=== PATIENT | male | born 1950 | race Caucasian/White ===

== ENCOUNTER 2019-07-14 21:58 | Inpatient (IN) | payer BC, MEDICARE, SELFPAY ==
[2019-07-14] VITALS (10 sets, daily range): BP systolic 106–172; BP diastolic 70–124; PULSE 87–102; RESP 12–20; TEMP 36.6; O2SAT 92–94
--- NOTE | 2019-07-14 22:11 | W.ED.GENAD ---
Discharge Plan Disposition Patient Disposition: [facility] INPATIENT Condition: Stable Discharge Details Chief Complaint: GI Bleed Clinical Impression: UGIB (upper gastrointestinal bleed), Calculus of distal right ureter Primary Care Provider: Rubin Penn ED Provider: Dhruv Salgado Jermyn Meds and New Rx's Prescriptions: No Action tamsulosin 0.4 MG capsule 0.4 mg PO DAILY@0830 Qty: 10 RF: 0 ondansetron HCl 4 mg Tablet 4 mg PO Q6H PRNRF: 0 propranolol 20 mg Tablet 20 mg PO DAILY PRN (Reason: Tremor(S)) RF: 0 oxycodone 5 mg Tablet 5 mg PO Q6H PRNRF: 0 Medical Decision Making Patient presenting with hematemesis after vomiting on and off today due to kidney stone pain. He continues to have intermittent right-sided pain despite oxycodone. The last couple episodes of vomiting were hematemesis. He denies having chest pain or shortness of breath. He has never had this previously. He is not a daily drinker, does not use nonsteroidals regularly, is not a smoker, and has no history of ulcers. 2 IVs established. Liter of LR ordered. Laboratory studies including type and screen ordered. NG tube placed with return of blood, not coffee-ground. Likely only about 50 mL's. EKG without acute ST changes. IV Protonix ordered. My suspicion is that this is a Claudia Pritchett tear. Records obtained from [facility]. Hemoglobin there this morning was 15.4. Tonight hemoglobin is 14. Only other changes this is creatinine was 1 this morning and is 1.7 tonight. Case discussed with surgeon, Dr. Dukes. She is available for endoscopy tomorrow. Case discussed with hospitalist, Dr. Short. Patient will be admitted to the ICU overnight. N.p.o. after midnight. He has received morphine here for his right-sided kidney stone pain. He is also given Zofran. He remained stable at this time. Medical Records Medical records reviewed: Yes I reviewed the patient's medical records. Lab Data Lab results reviewed: Yes I reviewed the patient's lab results. ECG Data Attestation: I personally reviewed and interpreted this ECG (s) as follows: Prior ECG tracings: not available for review Interpretation: Normal sinus rhythm at 97. Normal interval and axis. Nonspecific ST changes noted nothing acute. HPI General Mode of arrival: wheelchair. Date/Time Provider Initiated Documentation: 07/14/19 21:59. Limitations to Documentation: no limitations. Information obtained by: patient, family, RN notes reviewed and old records reviewed. HPI Narrative: Patient presents to ED with complaint of vomiting blood. Patient earlier today had noted right-sided abdominal pain. It was waxing and waning in character but got worse by midmorning. He had episode of vomiting. He was seen at [facility] as he was in the [facility]. There he was diagnosed with a 2 mm UVJ stone. Discharged on oxycodone, Flomax, Zofran. Since being home has still had intermittent episodes of vomiting as well as pain. The last couple of episodes of vomiting looked bloody to him. He has never had this previously. He is not a big drinker. He does not use nonsteroidals. No previous history of ulcers. Continues to have the right sided pain from the kidney stone intermittently. No fever. Related Data Home Medications Medication Instructions Recorded Confirmed tamsulosin 0.4 mg PO DAILY@0830 #10 [facility] 10/01/16 07/14/19 ondansetron HCl 4 mg PO Q6H PRN 07/14/19 07/14/19 oxycodone 5 mg PO Q6H PRN 07/14/19 07/14/19 propranolol 20 mg PO DAILY PRN 07/14/19 07/14/19 Previous Rx's Medication Instructions Recorded tamsulosin 0.4 mg PO DAILY@0830 #10 [facility] 10/01/16 Allergies Allergy/AdvReac Type Severity Reaction Status Date / Time No Known Allergies Allergy Unverified 07/14/19 22:18 Review of Systems Narrative: 03/23 Review of Systems completed and is negative except as stated above in HPI (Systems reviewed: Const, Eyes, ENT, Resp, CV, GI, , MSK, Skin, Neuro) [facility] Medical History Kidney stones (Acute) Testicular cancer (Inactive) Tremor (Chronic) Surgical History Hx of abdominal surgery (Chronic) for intussusception S/P orchiectomy (Chronic) Social History (Reviewed 07/14/19 @ 23:45 by Soto Guardado Smoking/Tobacco Use Status: Never Alcohol Intake: current Alcohol Intake frequency: a few times a month Substance use type: does not use Do you feel safe at home: Yes Do you feel safe in your relationship?: Yes Exam Narrative Exam Narrative: Vitals: Afebrile. Blood pressure elevated. No tachycardia. Initial saturation low but poor waveform and likely not reliable. Const: WDWN male in NAD. HEENT: NC/AT. Normal facial exam. Dried blood around his lips. Eyes: Normal conjunctiva and sclera. Neck: Supple. Trachea midline. Lungs: Normal respiratory effort. Lungs are clear. Cor: RRR without murmur/gallop. Good radial pulses. GI: Soft. NT/ND. No guarding or rebound. Neuro: A+O x 3. Normal speech, mentation, gait. Cranial nerves II - XII grossly intact. No gross motor or sensory deficit. Ext: No C/C/E. Skin: Warm and dry without rash. Critical Care Time Critical Care Time Critical Care Time: Yes Total Critical Care Time: 60 Attestation: Upon my evaluation, this patient had a high probability of imminent or life-threatening deterioration, which required my direct attention, intervention, and personal management. I have personally provided minutes of critical care time exclusive of time spent on separately billable procedures. Time includes review of laboratory data, radiology results, discussion with consultants, and monitoring for potential decompensation. Interventions were performed as documented above.
[2019-07-14 22:28] LABS: Abs Immature Grans 0.03 k/cumm (0.0-0.09); Absolute Basophil Count 0.01 k/cumm (0.0-0.2); Absolute Eosinophil Count 0.02 k/cumm (0.0-0.7); Absolute Monocyte Count 1.22 k/cumm (0.11-0.7); Basophils % 0.1; Eosinophils % 0.2; HCT 41.3 % (40.0-50.0); Immature Grans % 0.3 %; Lymphocytes % 9.2; Mean Corp. HGB Concentration 33.9 g/dL (32.0-36.0); Mean Corpuscular Hemoglobin 30.2 pg (27.0-33.0); Mean Corpuscular Volume 89.2 fL (80-95); Mean Platelet Volume 9.6 fL (8.0-11.0); Monocytes % 10.2; Platelet Count 291 x1000/uL (130-400); RBC 4.63 m/cumm (4.50-6.00); RBC Distribution Width 13.3 % (11.8-14.1)
[2019-07-14] MEDS: Pantoprazole 40 MG VIAL 80 MG IVP (22:33)
[2019-07-14] MEDS: Lactated Ringers 1,000 ML 1000 ML IV (22:33)
[2019-07-14] MEDS: Normal Saline Flush 10 ML SYR IVP (22:34)
[2019-07-14 22:41] LABS: ALT 22 U/L (16-63); AST 19 U/L (15-37); Albumin 3.3 g/dL (3.4-5.0); Alkaline Phosphatase 66 U/L (46-116); Anion Gap 11.4 mmol/L (3-11); BUN 27 mg/dL (7-18); Bilirubin, Total 0.4 mg/dL (0.2-1.0); CO2 24.6 mmol/L (21.0-32.0); CREATININE 1.68 mg/dL (0.70-1.30); Calcium 8.3 mg/dL (8.5-10.1); Chloride 101 mmol/L (98-107); Estimated GFR 40.83 (mL/min/1.73m2); Glucose 170 mg/dL (74-106); Potassium 4.3 mmol/L (3.5-5.1); Sodium 137 mmol/L (136-145)
--- NOTE | 2019-07-14 22:42 | DI.RAD_ITS ---
EXAM: XR PORTABLE CHEST AP INDICATION: NGT placement. COMPARISON: No exams were available for comparison TECHNIQUE: 2D digital imaging was performed. FINDINGS: The heart size and pulmonary vasculature are within normal limits. The lungs are clear. No pleural effusion or pneumothorax is identified. The tip of the nasogastric tube terminates in the distal eso phagus and should be advanced. The bones are unremarkable. IMPRESSION: Tip of the nasogastric tube terminates in the distal esophagus and should be advanced.
--- NOTE | 2019-07-14 22:57 | DI.VRAD_ITS ---
PROCEDURE INFORMATION: Exam: XR Chest, 1 View Exam date and time: 07/14/2019 10:44 PM Age: 68 years old Clinical indication: Other: Ngt placement TECHNIQUE: Imaging protocol: XR of the chest Views: 1 view. COMPARISON: No relevant prior studies available. FINDINGS: Tubes, catheters and devices: Enteric tube terminates in the distal esophagus. Lungs: Unremarkable. No consolidation. Pleural space: Unremarkable. No pleural effusion. No pneumothorax. Heart/Mediastinum: Unremarkable. No cardiomegaly. Bones/joints: Unremarkable. IMPRESSION: Enteric tube terminates in the distal esophagus. Recommend advancement. Findings discussed with ALBANIA HAMMOND MD. by Raghavendra Randall MD. of radiology at 07/14/2019 10:57 PM EST Dictated and Authenticated by: Raghavendra Randall MD. Ordering:DELISA Bartlett MD
[2019-07-14] MEDS: Ondansetron 4 MG/2 ML VIAL IVP (23:11)
[2019-07-14] MEDS: MORPHine 10 MG/ML VIAL 5 MG IVP (23:20)
--- NOTE | 2019-07-14 23:24 | NUR.NOTE ---
Nursing Note: MD updated about pt's pain- not proportionate to pt presentation. Medicated x 2 per MD order. Pt and family requesting more. MD aware. Will continue to monitor.
[2019-07-14 23:29] LABS: PTT Activated 23.4 sec (21.0-31.4)
--- NOTE | 2019-07-14 23:45 | HPE_ITS ---
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 He was seen at [facility] ED and started on Flomax with pain control and antiemetics. He continued to have nausea and vomiting at home with vomiting nonbloody blood prior to presenting to this facility's ED. He had no further hematemesis and an NG tube did show clearing but he will be observed overnight with IV hydration and n.p.o. for EGD in the morning with surgical consultation. He is hemodynamically stable but will be observed in ICU on medical care in case he begins to bleed suddenly. Surgery has been contacted about his case. He is a full code and this will be respected. (2) Kidney stones: Start date: 07/14/19 Status: Acute Assessment and plan: The patient has a 2 mm ureteral stone in the UVJ which will most likely pass with time. We will continue IV hydration and symptom control with urology consultation if he does not pass the stone and continues to have symptoms after being evaluated for his upper GI bleed. 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 He had a 2 mm right UVJ stone which was thought to be able to be passed because of its size. He was placed also on Flomax, antiemetic and pain control and was sent home. During the day he had continued vomiting and began to appear to be bloody emesis with his fourth or fifth bout of emesis. He reported to the ED at this facility with prompting from his for further evaluation. The NG tube was palced while in the ED and did have some unclotted blood clearing with suction. It was thought that he may have a Claudia-Pritchett tear but as precaution his NG tube was left in place and he will be observed overnight with surgical consultation for EGD in the morning. We will repeat his hemograms if he has continued bleeding and at least recheck this in the morning. He has been typed and screened in case he needs transfusion. He has no risk for GI bleed not being on NSAIDs and not drinking alcohol. His recurrent emesis was with some retching. Patient has had no fever but continues to have some right renal colic. Review of Systems Narrative: 13 point review of systems otherwise unrevealing or stable. [facility] Medical History Kidney stones (Acute) Testicular cancer (Inactive) Tremor (Chronic) Surgical History Hx of abdominal surgery (Chronic) for intussusception S/P orchiectomy (Chronic) Social History Smoking/Tobacco Use Status: Never Alcohol Intake: current Alcohol Intake frequency: a few times a month Substance use type: does not use Do you feel safe at home: Yes Do you feel safe in your relationship?: Yes Meds Home Medications and Allergies Home Medications Medication Instructions Recorded Confirmed Type tamsulosin 0.4 mg PO DAILY@0830 #10 [facility] 10/01/16 07/14/19 Rx ondansetron HCl 4 mg PO Q6H PRN 07/14/19 07/14/19 History oxycodone 5 mg PO Q6H PRN 07/14/19 07/14/19 History propranolol 20 mg PO DAILY PRN 07/14/19 07/14/19 History Allergies Allergy/AdvReac Type Severity Reaction Status Date / Time No Known Allergies Allergy Unverified 07/14/19 22:18 Exam Narrative Exam Narrative: General: Patient is thin, appears appropriate for age and in no acute distress. He is alert and oriented x3. HEENT: Normocephalic, eyes with pupils equal and reactive to light symmetrically with extraocular movement intact and sclera anicteric. Oropharynx with dry oral mucosa and fair dentition. Neck: Supple without JVD. Back: Normal posture with no CVA tenderness. Heart: Regular rate and rhythm with no murmurs or gallops appreciated. Lungs: Clear to all station percussion. Abdomen: Scaphoid contour, tender to palpation over the right kidney with no palpable masses, no palpable hepatosplenomegaly and no rebound tenderness. Bowel sounds are positive in all quadrants. Genitalia/rectal: Exam deferred. Extremities: Without clubbing cyanosis or edema. All joints have fair range of motion. Peripheral pulses intact with normal capillary refill. Skin: Normal color, warm and dry. No rashes. Neuro: Cranial nerves II through XII grossly intact, no focalizing motor deficits. Psych: Normal mood and thought processes. Remote and recent memory intact. Lymph: No palpable lymphadenopathy. Results Imaging Imaging Studies: Exam: XR Chest, 1 View Exam date and time: 07/14/2019 10:44 PM Age: 68 years old Clinical indication: Other: Ngt placement TECHNIQUE: Imaging protocol: XR of the chest Views: 1 view. COMPARISON: No relevant prior studies available. FINDINGS: Tubes, catheters and devices: Enteric tube terminates in the distal esophagus. Lungs: Unremarkable. No consolidation. Pleural space: Unremarkable. No pleural effusion. No pneumothorax. Heart/Mediastinum: Unremarkable. No cardiomegaly. Bones/joints: Unremarkable. IMPRESSION: Enteric tube terminates in the distal esophagus. Recommend advancement. Findings discussed with ALBANIA HAMMOND MD. by Raghavendra Randall MD. of radiology at 07/14/2019 10:57 PM EST Dictated and Authenticated by: Raghavendra Randall MD. Labs Result diagrams: 07/14/19 22:05 07/14/19 22:05 Labs: Laboratory Results - last 24 hr 07/14/19 07/14/19 07/14/19 22:05 22:05 22:05 WBC 12.00 H RBC 4.63 Hgb 14.0 Hct 41.3 MCV 89.2 MCH 30.2 MCHC 33.9 RDW 13.3 Plt Count 291 MPV 9.6 Immature Gran % 0.3 Neutrophils % 80.0 Lymphocytes % 9.2 Monocytes % 10.2 Eosinophils % 0.2 Basophils % 0.1 Absolute Neutrophils 9.60 H Absolute Lymphocytes 1.10 L Absolute Monocytes 1.22 H Absolute Eosinophils 0.02 Absolute Basophils 0.01 APTT 23.4 Sodium 137 Potassium 4.3 Chloride 101 Carbon Dioxide 24.6 Anion Gap 11.4 H BUN 27 H Creatinine 1.68 H Estimated GFR/1.73 m2 40.83 Glucose 170 H Calcium 8.3 L Total Bilirubin 0.4 AST 19 ALT 22 Alkaline Phosphatase 66 Total Protein 7.0 Albumin 3.3 L Patient ABO/Rh Antibody Screen 07/14/19 22:05 WBC RBC Hgb Hct MCV MCH MCHC RDW Plt Count MPV Immature Gran % Neutrophils % Lymphocytes % Monocytes % Eosinophils % Basophils % Absolute Neutrophils Absolute Lymphocytes Absolute Monocytes Absolute Eosinophils Absolute Basophils APTT Sodium Potassium Chloride Carbon Dioxide Anion Gap BUN Creatinine Estimated GFR/1.73 m2 Glucose Calcium Total Bilirubin AST ALT Alkaline Phosphatase Total Protein Albumin Patient ABO/Rh O Negative Antibody Screen Negative Last Vital Signs Temp 36.6 C 07/14/19 22:12 Pulse 90 07/14/19 22:12 Resp 16 07/14/19 22:12 BP 172/90 H 07/14/19 22:12 Pulse Ox 92 L 07/14/19 22:12
[2019-07-15] VITALS (87 sets, daily range): BP systolic 88–144; BP diastolic 44–94; PULSE 62–168; RESP 11–28; TEMP 36.5–37.2; O2SAT 92–99
[2019-07-15] LABS: Prothrombin Time 9.9 sec (9.3-11.0)
[2019-07-15] MEDS: Normal Saline 1,000 ML 125 ML IV ×4 (02:00→22:20)
--- NOTE | 2019-07-15 02:41 | NUR.NOTE ---
Per Dr. Short, pt ok to have NG clamped. RN will occaisionally connect to suction and check for output. If pt c/o nausea RN will connect to low intermittent suction. Nursing Note:
[2019-07-15] MEDS: Acetaminophen 325 MG TAB PO (02:49)
[2019-07-15 07:11] LABS: HCT 32.3 % (40.0-50.0); HGB 10.6 g/dL (13.5-17.5); Mean Corp. HGB Concentration 32.8 g/dL (32.0-36.0); Mean Corpuscular Hemoglobin 29.7 pg (27.0-33.0); Mean Corpuscular Volume 90.5 fL (80-95); Mean Platelet Volume 9.6 fL (8.0-11.0); Platelet Count 212 x1000/uL (130-400); RBC 3.57 m/cumm (4.50-6.00); RBC Distribution Width 13.3 % (11.8-14.1); White Blood Cell Count 8.32 k/cumm (4.4-10.8)
[2019-07-15 07:29] LABS: ALT 14 U/L (16-63); AST 14 U/L (15-37); Albumin 2.4 g/dL (3.4-5.0); Alkaline Phosphatase 47 U/L (46-116); Anion Gap 9.4 mmol/L (3-11); BUN 34 mg/dL (7-18); Bilirubin, Total 0.3 mg/dL (0.2-1.0); CO2 25.6 mmol/L (21.0-32.0); CREATININE 1.91 mg/dL (0.70-1.30); Calcium 7.5 mg/dL (8.5-10.1); Chloride 104 mmol/L (98-107); Estimated GFR 35.21 (mL/min/1.73m2); Glucose 118 mg/dL (74-106); Potassium 4.4 mmol/L (3.5-5.1); Sodium 139 mmol/L (136-145); Total Protein 5.2 g/dL (6.4-8.2)
--- NOTE | 2019-07-15 07:48 | SCONE_ITS ---
Date of service: 07/15/19 Time of Service: 07:48 Assessment and Plan Assessment and plan (1) UGIB (upper gastrointestinal bleed): Status: Acute Assessment and plan: A// Patient presented to the ER following a single episode of hematemesis.? Claudia Pritchett tears vs. Upper GI bleed/Ulcers Patient's abdominal pain has been well controlled with morphine overnight. No Flatus or BM. Patient denies any history of heartburn or reflux. He has been NPO overnight. Patient was given ice chips this morning for dry mouth. NG tube is in place on intermittent suction. -Discussed Upper endoscopy procedure and the need to be NPO. Discussed possible complications of the procedure to include bleeding, pain, perforation, missed small lesion/polyp/ulcers, sore throat, aspiration and adverse reaction to the m edications or sedation. Questions were answered to patients satisfaction. No guarantees were implied or given. P// EGD with Dr. Dukes History of Present Illness History of Present Illness Chief Complaint: Upper GI bleed Narrative: 68 y/o male presented to the ER at [facility] yesterday 07/14/19 for abdominal pain and was diagnosed with a right sided kidney stone. He then presented to our ER later that evening with complaints of a single episode of hematemesis which had stopped prior to arrival to the ER. In the ER an NG tube was placed and blood was suctioned out. Patient's pain from his kidney stone has been well controlled overnight with morphine. Patient denies any chest pain, palpitations or fluttering of his heart. He denies any symptoms of h eartburn, reflux or indigestion. He describes feeling like last night while taking tylenol, it felt as if the pill was stuck in his throat. Review of Systems Constitutional Constitutional: Denies chills, Denies fever(s), Denies frequent falls, Denies night sweats and Denies weight loss Eyes Eyes: Denies loss of vision ENT Ears, Nose, Mouth, and Throat: Denies abnormal hearing, Denies dysphagia, Denies hearing loss, Denies nasal congestion and Denies neck pain Cardiovascular Cardiovascular: Denies chest pain at rest, Denies chest pain with activity, Denies syncope, Denies dyspnea, Denies dyspnea on exertion and Denies paroxysmal nocturnal dyspnea Respiratory Respiratory: Denies cough, Denies dyspnea and Denies dyspnea on exertion Gastrointestinal Gastrointestinal: Reports abdominal pain, Denies melena, Denies hematochezia, Denies change in bowel habits, Denies constipation, Denies dysphagia and Denies diarrhea Genitourinary Genitourinary: Denies urinary frequency, Denies urinary hesitancy and Denies urinary urgency Musculoskeletal Musculoskeletal: Denies neck pain Integumentary/Breasts Skin/Breast: Denies bleeding lesions, Denies non-healing lesions, Denies rash and Denies unusual bruising Neurologic Neurologic: Denies abnormal hearing, Denies syncope, Denies frequent falls and Denies loss of vision Hematologic/Lymphatic Hematologic/Lymphatic: Denies easy bleeding and Denies easy bruising PFSH Medical History Kidney stones (Acute) Testicular cancer (Inactive) Tremor (Chronic) Surgical History Hx of abdominal surgery (Chronic) for intussusception S/P orchiectomy (Chronic) Social History Smoking/Tobacco Use Status: Never Alcohol Intake: current Alcohol Intake frequency: a few times a month Substance use type: does not use Do you feel safe at home: Yes Do you feel safe in your relationship?: Yes Exam Const General: cooperative, healthy appearing and comfortable Orientation: alert and oriented x3 Resp Effort & Inspection: normal respiratory effort, no audible wheezes and no cough GI Inspection: normal to inspection and non-distended Palpation: soft, no guarding and nontender Other: NG tube in place, no contents in the container. However, dark brown ? blood was in the tubing. Results Last Vital Signs Temp 36.7 C 07/15/19 01:26 Pulse 87 07/15/19 03:54 Resp 12 07/15/19 05:20 BP 110/67 07/15/19 01:26 Pulse Ox 93 L 07/15/19 05:20 Labs Result diagrams: 07/15/19 06:37 07/15/19 06:37 Labs: Laboratory Results - last 24 hr 07/14/19 07/14/19 07/14/19 22:05 22:05 22:05 WBC 12.00 H RBC 4.63 Hgb 14.0 Hct 41.3 MCV 89.2 MCH 30.2 MCHC 33.9 RDW 13.3 Plt Count 291 MPV 9.6 Immature Gran % 0.3 Neutrophils % 80.0 Lymphocytes % 9.2 Monocytes % 10.2 Eosinophils % 0.2 Basophils % 0.1 Absolute Neutrophils 9.60 H Absolute Lymphocytes 1.10 L Absolute Monocytes 1.22 H Absolute Eosinophils 0.02 Absolute Basophils 0.01 PT 9.9 INR 1.0 APTT 23.4 Sodium 137 Potassium 4.3 Chloride 101 Carbon Dioxide 24.6 Anion Gap 11.4 H BUN 27 H Creatinine 1.68 H Estimated GFR/1.73 m2 40.83 Glucose 170 H Calcium 8.3 L Total Bilirubin 0.4 AST 19 ALT 22 Alkaline Phosphatase 66 Total Protein 7.0 Albumin 3.3 L Patient ABO/Rh Antibody Screen 07/14/19 07/15/19 07/15/19 22:05 06:37 06:37 WBC 8.32 D RBC 3.57 L Hgb 10.6 L D Hct 32.3 L D MCV 90.5 MCH 29.7 MCHC 32.8 RDW 13.3 Plt Count 212 MPV 9.6 Immature Gran % Neutrophils % Lymphocytes % Monocytes % Eosinophils % Basophils % Absolute Neutrophils Absolute Lymphocytes Absolute Monocytes Absolute Eosinophils Absolute Basophils PT INR APTT Sodium 139 Potassium 4.4 Chloride 104 Carbon Dioxide 25.6 Anion Gap 9.4 BUN 34 H Creatinine 1.91 H Estimated GFR/1.73 m2 35.21 Glucose 118 H Calcium 7.5 L Total Bilirubin 0.3 AST 14 L ALT 14 L Alkaline Phosphatase 47 Total Protein 5.2 L Albumin 2.4 L Patient ABO/Rh O Negative Antibody Screen Negative
--- NOTE | 2019-07-15 08:20 | ROE_ITS ---
Date of service: 07/15/19 Time of Service: 12:40 Operative Note Operative Note DATE OF PROCEDURE: 07/15/19 PRE-OP DIAGNOSIS: Hematemesis POST-OP DIAGNOSIS: same (Gastric inflammation and esophageal inflammation) PROCEDURE: EGD SURGEON: Roseline Dukes ANESTHESIA: GETA (ASA 2/ Norman Sampson CRNA) ESTIMATED BLOOD LOSS: 0 COMPLICATIONS: None Patient was transported to: PACU Patient's condition: stable Indications: Mr. Aguilar is a pleasant 68 year old male who was seen at [facility] ER for abdominal pain and diagnosed with Kidney stone. He then drove home, ate lunch and vomited once and there was blood. He was seen in the ER here and vitals were stable. He was admitted to the ICU overnight. An NG tube was placed and 50 cc of blood was removed. In the MOrning there was old blood noted in the NG tube. We were consulted for an EGD. Risks, benefits and complications have been reviewed. Complications include but are not limited to bleeding, pain, perforation, sore throat, aspiration, and adverse reaction to the medications. Questions were entertained and answered to their satisfaction and they wished to proceed. No guarantees were given or implied. Findings: about 400 cc of old blood noted in the stomach and duodenum as well as food particles. NO ulcers or masses were noted. The stomach and duodenum were irrigated with 400 cc of NS Procedure Description: After informed consent was obtained the patient was take to the procedure room and placed in a supine position. Monitors were applied and a time out was done. The patients name, date of , procedure type, allergies to medications and metal in their body was reviewed. A bite block was placed and the patient was sedated. Once sedated and comfortable the gastroscope was advanced through the oropharynx which was grossly normal into the esophagus. The proximal and mid- esophagus were normal. Small amounts of old blood were noted. The scope was advanced into the stomach a lot of old blood was noted with clots. There was also food noted within the stomach. The Gastroscope was removed and the patient was placed under general anesthesia and intubated to protect patient from aspirating old blood. The scope was the placed back into the stomach and through the pylorus into the 3rd portion of the duodenum. The duodenum was noted to be normal after irrigating the torrez with Saline. No ulcers or masses were noted. No bright red blood was noted. The scope was retracted back into the stomach and the blood was irrigated from the gastric torrez. NO ulcers were noted and no masses. There was no acute bleeding noted. The scope was retroflexed. The cardia and fundus were noted to be normal after the blood was irrigated away. There was a hiatal hernia noted. The scope was retracted back into the esophagus and the Ge junction was irrigated. No ulcers or tears were identified. No acute bleeding was noted. The Z line was irregular. The GE junction was at 30 cm. The scope was removed and the patient was woken up and taken back to [facility] in stable condition. I did not due any biopsies as all I could find was generalized inflammation of the stomach and esophagus. I did not want to cause bleeding. Follow up: Patient should have a follow up EGD in 1 months. He will be started on Carafate and BID Protonix.
[2019-07-15] MEDS: Pantoprazole 40 MG VIAL IVP (08:26)
[2019-07-15] MEDS: Normal Saline Flush 10 ML SYR IVP (08:27)
--- NOTE | 2019-07-15 08:57 | W.PM.PROGNOT ---
Date of Service Date of service: 07/15/19 Time of Service: 14:13 Assessment and Plan Assessment and plan (1) Hypotension: Status: Acute Assessment and plan: Likely due to side effect of anesthesia - but recurrent bleeding is also a possibility. Since the patient was put on epinephrine and has not yet been challenged with a diet, he is now formally transferred to the ICU. Treat BP with IVF and monitor post epinephrine. Monitor H/H with resumption of diet. (2) UGIB (upper gastrointestinal bleed): Status: Acute Assessment and plan: s/p EGD today - as above. Started on carafate and PO BID PPI. Will trial a diet and monitor for rebleeding, since no clear source of bleeding has been identified. (3) Anemia due to acute blood loss: Status: Acute Assessment and plan: No active bleeding seen on EGD. Recheck H/H now. As above (4) Tracheal hemorrhage: Status: Suspected Assessment and plan: Likely due to mild trauma on intubation. at this time, does not have evidence of ongoing hemorrhage, but the airway should be closely monitored. (5) Kidney stones: Status: Acute Assessment and plan: Still has not passed the stone. Mild R hydronephrosis on US. If still has not passed the stone by tomorrow, obtain urology consult. (6) Estrada esophagus: Status: Acute Assessment and plan: Started on PPI. Will need a repeat EGD for bx in 1 month. (7) Acute kidney injury superimposed on chronic kidney disease: Status: Acute Assessment and plan: In setting of bleeding and likely hydronephrosis. Also, ?urinary retention - check PVRs. Monitor I/Os, daily weights, Cr. (8) DVT prophylaxis: Status: Acute Assessment and plan: chemical dvt ppx is contraindicated in setting of acute bleeding. TEDs/SCD's (9) Discharge planning issues: Status: Acute Assessment and plan: Full code Upgraded to ICU due to hypotension. Total Critical Care Time 40 minutes. Subjective Subjective Interval history since last seen: S/p EGD today. No active bleeding seen, but about 500 cc of old blood seen in stomach. No obvious source of bleeding found, but he did appear to have friable mucosa throughout stomach and also Estrada's esophagus. Because a large volume of old blood was seen in the stomach, the patient did have to be intubated to protect airway from aspiration. On extubation, the patient was noted to have a streak of blood on his ET tube. His BP's were also in 70's-80's post-op - likely due to precedex he received for anesthesia. He did feel dizzy while laying down when I saw him. Denies chest pain, shortness of breath, nausea, abdominal pain at the time of my exam. Hgb 10.6 this am. No BM. PVCs on monitor. The stone has not yet passed. Exam Narrative Exam Narrative: General: Somnolent middle-aged male, looks pale, clearly still under effect of some anesthesia, A&OX3, but falls asleep easily HEENT: EOMI, MMM Heart: RRR with occasional extra beat Lungs: CTAB Abdomen: soft, nontender, nondistended Extremities: no e/c/c BLE's Objective Objective Clinical Data: Abnormal lab results 07/14/19 07/14/19 07/15/19 Range/Units 22:05 22:05 06:37 WBC 12.00 H (4.4-10.8) k/cumm RBC (4.50-6.00) m/cumm Hgb (13.5-17.5) g/dL Hct (40.0-50.0) % Absolute Neutrophils 9.60 H (1.2-6.7) k/cumm Absolute Lymphocytes 1.10 L (1.2-3.4) k/cumm Absolute Monocytes 1.22 H (0.11-0.7) k/cumm Anion Gap 11.4 H (3-11) mmol/L BUN 27 H 34 H (7-18) mg/dL Creatinine 1.68 H 1.91 H (0.70-1.30) mg/dL Glucose 170 H 118 H (74-106) mg/dL Calcium 8.3 L 7.5 L (8.5-10.1) mg/dL AST 14 L (15-37) U/L ALT 14 L (16-63) U/L Total Protein 5.2 L (6.4-8.2) g/dL Albumin 3.3 L 2.4 L (3.4-5.0) g/dL 07/15/19 Range/Units 06:37 WBC (4.4-10.8) k/cumm RBC 3.57 L (4.50-6.00) m/cumm Hgb 10.6 L D (13.5-17.5) g/dL Hct 32.3 L D (40.0-50.0) % Absolute Neutrophils (1.2-6.7) k/cumm Absolute Lymphocytes (1.2-3.4) k/cumm Absolute Monocytes (0.11-0.7) k/cumm Anion Gap (3-11) mmol/L BUN (7-18) mg/dL Creatinine (0.70-1.30) mg/dL Glucose (74-106) mg/dL Calcium (8.5-10.1) mg/dL AST (15-37) U/L ALT (16-63) U/L Total Protein (6.4-8.2) g/dL Albumin (3.4-5.0) g/dL Vital Signs Temperature 36.5 C 07/15/19 08:38 Temperature Source Temporal Artery Scan 07/15/19 01:26 Pulse 87 07/15/19 03:54 Pulse 86 07/15/19 05:20 Respiratory Rate 12 07/15/19 05:20 Respiratory Effort Non-Labored 07/15/19 08:38 Respiratory Depth Normal 07/15/19 08:38 Blood Pressure 110/67 07/15/19 01:26 Blood Pressure Mean 81 07/15/19 01:26 Blood Pressure Position Supine 07/15/19 08:38 Pulse Oximetry 93 L 07/15/19 05:20 Oxygen Delivery Method Room Air 07/15/19 08:38 Oxygen Flow Rate 0 07/15/19 08:38 Pain Level 0 07/15/19 08:38 Intake & Output 07/14/19 07/14/19 07/15/19 11:59 23:59 11:59 Intake Total 1010 / 1010 810.417 / 810.417 Balance 1010 / 1010 810.417 / 810.417 Weight 79.2 kg 75.1 kg Intake: IV 1010 / 1010 810.417 / 810.417 Other: Comment prostate enlargement Emesis Description Bright Red Blood Gastric Occult Blood Right Nare Positive Laboratory Results WBC 8.32 k/cumm (4.4-10.8) D 07/15/19 06:37 RBC 3.57 m/cumm (4.50-6.00) L 07/15/19 06:37 Hgb 10.6 g/dL (13.5-17.5) L D 07/15/19 06:37 Hct 32.3 % (40.0-50.0) L D 07/15/19 06:37 MCV 90.5 fL (80-95) 07/15/19 06:37 MCH 29.7 pg (27.0-33.0) 07/15/19 06:37 MCHC 32.8 g/dL (32.0-36.0) 07/15/19 06:37 RDW 13.3 % (11.8-14.1) 07/15/19 06:37 Plt Count 212 x1000/uL (130-400) 07/15/19 06:37 MPV 9.6 fL (8.0-11.0) 07/15/19 06:37 Immature Gran % 0.3 % 07/14/19 22:05 Neutrophils % 80.0 07/14/19 22:05 Lymphocytes % 9.2 07/14/19 22:05 Monocytes % 10.2 07/14/19 22:05 Eosinophils % 0.2 07/14/19 22:05 Basophils % 0.1 07/14/19 22:05 Absolute Neutrophils 9.60 k/cumm (1.2-6.7) H 07/14/19 22:05 Absolute Lymphocytes 1.10 k/cumm (1.2-3.4) L 07/14/19 22:05 Absolute Monocytes 1.22 k/cumm (0.11-0.7) H 07/14/19 22:05 Absolute Eosinophils 0.02 k/cumm (0.0-0.7) 07/14/19 22:05 Absolute Basophils 0.01 k/cumm (0.0-0.2) 07/14/19 22:05 PT 9.9 sec (9.3-11.0) 07/14/19 22:05 INR 1.0 (0.9-1.1) 07/14/19 22:05 APTT 23.4 sec (21.0-31.4) 07/14/19 22:05 Sodium 139 mmol/L (136-145) 07/15/19 06:37 Potassium 4.4 mmol/L (3.5-5.1) 07/15/19 06:37 Chloride 104 mmol/L (98-107) 07/15/19 06:37 Carbon Dioxide 25.6 mmol/L (21.0-32.0) 07/15/19 06:37 Anion Gap 9.4 mmol/L (3-11) 07/15/19 06:37 BUN 34 mg/dL (7-18) H 07/15/19 06:37 Creatinine 1.91 mg/dL (0.70-1.30) H 07/15/19 06:37 Estimated GFR/1.73 m2 35.21 (mL/min/1.73m2) 07/15/19 06:37 Glucose 118 mg/dL (74-106) H 07/15/19 06:37 Calcium 7.5 mg/dL (8.5-10.1) L 07/15/19 06:37 Total Bilirubin 0.3 mg/dL (0.2-1.0) 07/15/19 06:37 AST 14 U/L (15-37) L 07/15/19 06:37 ALT 14 U/L (16-63) L 07/15/19 06:37 Alkaline Phosphatase 47 U/L (46-116) 07/15/19 06:37 Total Protein 5.2 g/dL (6.4-8.2) L 07/15/19 06:37 Albumin 2.4 g/dL (3.4-5.0) L 07/15/19 06:37 Patient ABO/Rh O Negative 07/14/19 22:05 Antibody Screen Negative 07/14/19 22:05 US renal: 1. Prominence of the right renal collecting system, which may represent mild hydronephrosis. 2. Large postvoid urinary bladder volume. 3. Debris seen within the urinary bladder. Please correlate clinically. CXR: Bilateral basilar atelectasis.
--- NOTE | 2019-07-15 09:59 | INITIAL_ITS ---
- If Service Date Differs Date of service: 07/15/19 Time of Service: 10:00 Care Management Initial Assess REASON FOR HOSPITALIZATION:: Upper gastrointestinal bleed, kidney stone PAST MEDICAL HISTORY/PAST SURGICAL HISTORY:: Tremor, abdominal surgery for Inter Stim suction, orchiectomy, testicular cancer PREVIOUS FUNCTIONAL STATUS/SOCIAL/FAMILY SUPPORTS:: Soto lives with his spouse, he is independent with ADL's and transportation. Soto denies any assistance or needs. CURRENT FUNCTIONAL STATUS:: Soto is alert during assessment he states he is feeling better and is hopeful to be discharged soon. Soto reports he will follow up with surgical provider after discharge. Soto denies any addtional needs. ADVANCE DIRECTIVES:: None on file, CM offered forms and assistance with comp letion Has patient been provided with information about the portal?: Yes Did the patient sign up for the portal?: No (Already enrolled) CODE STATUS:: Full Code INSURANCE COVERAGE / FINANCIAL ISSUES:: Blue Cross Blue Shield, Medicare CURRENT HOME/COMMUNITY SERVICES/EQUIPMENT:: None PRIMARY CARE PHYSICIAN:: Rubin Penn POTENTIAL DISCHARGE NEEDS:: Follow-up appointment with primary care provider, and urology PATIENT/FAMILY EDUCATION NEEDS:: Discharge education, limitations, follow-up plan of care, asked me 3 and self-management ANTICIPATED BARRIERS TO DISCHARGE:: None TRANSPORTATION:: Via private car with family PLAN:: Soto we discharged home when medically ready, anticipate no additional services. He will need to follow-up with surgical, urology if recomended and primary care provider. CM will continue to provide support
--- NOTE | 2019-07-15 10:33 | DI.US_ITS ---
EXAM: US RENAL CLINICAL HISTORY: NEPHROLITHIASIS, ?HYDRONEPHROSIS TECHNIQUE: Ultrasound performed using standard protocol. COMPARISON: No exams were available for comparison FINDINGS: The right kidney measures 10.6 cm long. There is mild prominence of the right renal collecting syste m. No nephrolithiasis is seen sonographically. There is blood flow to the right kidney. The left kidney measures 11.4 cm long. No renal mass, calculus or obstruction is seen. There is blo od flow to the left kidney. Prevoid urinary bladder volume is 338 cc. There is debris settling in dependent portion of the bladd er. No bladder wall thickening is seen. The left ureteral jet is visualized. There is a large post void urinary bladder volume of 152 cc. Prostate gland is enlarged at 69 cc. IMPRESSION: 1. Prominence of the right renal collecting system, which may represent mild hydronephrosis. 2. Large postvoid urinary bladder volume. 3. Debris seen within the urinary bladder. Please correlate clinically.
[2019-07-15] MEDS: Lactated Ringers 1,000 ML 30 ML IV (11:24)
[2019-07-15] MEDS: Normal Saline 500 ML IV (13:43)
--- NOTE | 2019-07-15 13:52 | DI.RAD_ITS ---
EXAM: XR PORTABLE CHEST AP INDICATION: ?TRAUMA ON INTUBATION (NOW EXTUBATED). COMPARISON: XR PORTABLE CHEST AP POST LINE from 07/14/2019 TECHNIQUE: 2D digital imaging was performed. FINDINGS: The heart size and pulmonary vasculature are within normal limits. The nasogastric tube has been rem annelise. Plate atelectasis is seen in the lung bases bilaterally. No focal consolidating infiltrates a re seen. There are no pleural effusions or pneumothoraces. IMPRESSION: Bilateral basilar atelectasis.
--- NOTE | 2019-07-15 14:35 | W.NUTCONSULT ---
Date of service: 07/15/19 Time of Service: 14:35 Nutritional Consult ASSESSMENT: 68 year old male admitted with upper GI bleed. Diet advanced to regular, soft low acid diet at lunch today. BMI wnl for age. Not considered at nutritional risk at this time. Will be available prn. MONITORING AND EVALUATION: po intake, weight, labs Time Spent in Nutritional Counseling and Treatment: 0 time spent face to face
[2019-07-15] MEDS: Tamsulosin 0.4 MG CAPCR PO (14:42)
[2019-07-15 15:10] LABS: HCT 31.5 % (40.0-50.0); HGB 10.3 g/dL (13.5-17.5)
[2019-07-15] MEDS: Sucralfate 1 GM TAB PO ×2 (17:02→23:00)
--- NOTE | 2019-07-15 17:20 | W.PM.PROGNOT ---
Date of Service Date of service: 07/15/19 Time of Service: 16:00 Assessment and Plan Assessment and plan (1) UGIB (upper gastrointestinal bleed): Status: Acute Assessment and plan: A\\ UGIB. No active bleeding identified.. No clear source noted Discussed findings with patient Patient does indorce some Heart Burn type symptoms intermittently. He has had a couple of very stressful times at work recently. Discussed treatment plan and follow up P\\ Continue on soft diet, low acid Protonix 40 mg BID and Carafate 1 gm ACHS Follow up with Dr. Dukes in 2 weeks on 07/28/2019 at 09:30 Patient signed out to Nelly Salvador MD Subjective Subjective Interval history since last seen: Soto is doing well after his procedure. His BP has come up back to baseline. He has no abdominal pain. He has tolerated a soft diet Exam GI Inspection: normal to inspection Palpation: soft and nontender Auscultation: normal bowel sounds Objective Objective Clinical Data: Abnormal lab results 07/14/19 07/14/19 07/15/19 Range/Units 22:05 22:05 06:37 WBC 12.00 H (4.4-10.8) k/cumm RBC (4.50-6.00) m/cumm Hgb (13.5-17.5) g/dL Hct (40.0-50.0) % Absolute Neutrophils 9.60 H (1.2-6.7) k/cumm Absolute Lymphocytes 1.10 L (1.2-3.4) k/cumm Absolute Monocytes 1.22 H (0.11-0.7) k/cumm Anion Gap 11.4 H (3-11) mmol/L BUN 27 H 34 H (7-18) mg/dL Creatinine 1.68 H 1.91 H (0.70-1.30) mg/dL Glucose 170 H 118 H (74-106) mg/dL Calcium 8.3 L 7.5 L (8.5-10.1) mg/dL AST 14 L (15-37) U/L ALT 14 L (16-63) U/L Total Protein 5.2 L (6.4-8.2) g/dL Albumin 3.3 L 2.4 L (3.4-5.0) g/dL 07/15/19 07/15/19 Range/Units 06:37 14:55 WBC (4.4-10.8) k/cumm RBC 3.57 L (4.50-6.00) m/cumm Hgb 10.6 L D 10.3 L (13.5-17.5) g/dL Hct 32.3 L D 31.5 L (40.0-50.0) % Absolute Neutrophils (1.2-6.7) k/cumm Absolute Lymphocytes (1.2-3.4) k/cumm Absolute Monocytes (0.11-0.7) k/cumm Anion Gap (3-11) mmol/L BUN (7-18) mg/dL Creatinine (0.70-1.30) mg/dL Glucose (74-106) mg/dL Calcium (8.5-10.1) mg/dL AST (15-37) U/L ALT (16-63) U/L Total Protein (6.4-8.2) g/dL Albumin (3.4-5.0) g/dL Vital Signs Temperature 97.7 F 07/15/19 14:02 Temperature Source Temporal Artery Scan 07/15/19 01:26 Pulse 78 07/15/19 14:02 Pulse 82 07/15/19 11:15 Respiratory Rate 17 07/15/19 11:15 Respiratory Effort Non-Labored 07/15/19 14:02 Respiratory Depth Normal 07/15/19 14:02 Blood Pressure 90/55 L 07/15/19 14:02 Blood Pressure Mean 66 07/15/19 14:02 Blood Pressure Position Supine 07/15/19 08:38 Pulse Oximetry 95 07/15/19 14:30 Oxygen Delivery Method Nasal Cannula 07/15/19 14:30 Oxygen Flow Rate 2 07/15/19 14:30 Pain Level 0 07/15/19 14:02 Intake & Output 07/14/19 07/15/19 07/15/19 23:59 11:59 23:59 Intake Total 1010 / 1010 810.417 / 2733.334 1922.917 / 2733.334 Output Total 400 / 400 Balance 1010 / 1010 810.417 / 2333.334 1522.917 / 2333.334 Weight 174 lb 9.698 oz 165 lb 9.074 oz Intake: IV 1010 / 1010 810.417 / 6863.334 1922.917 / 2733.334 Output: Urine 400 / 400 Other: Urine Color Light Agnieszka Urine Appearance Clear Urine Odor None Comment NO voids yet since admit NO voids yet since admit Emesis Description Bright Red Blood Gastric Occult Blood Right Nare Positive Voiding Methods Urinal Laboratory Results WBC 8.32 k/cumm (4.4-10.8) D 07/15/19 06:37 RBC 3.57 m/cumm (4.50-6.00) L 07/15/19 06:37 Hgb 10.3 g/dL (13.5-17.5) L 07/15/19 14:55 Hct 31.5 % (40.0-50.0) L 07/15/19 14:55 MCV 90.5 fL (80-95) 07/15/19 06:37 MCH 29.7 pg (27.0-33.0) 07/15/19 06:37 MCHC 32.8 g/dL (32.0-36.0) 07/15/19 06:37 RDW 13.3 % (11.8-14.1) 07/15/19 06:37 Plt Count 212 x1000/uL (130-400) 07/15/19 06:37 MPV 9.6 fL (8.0-11.0) 07/15/19 06:37 Immature Gran % 0.3 % 07/14/19 22:05 Neutrophils % 80.0 07/14/19 22:05 Lymphocytes % 9.2 07/14/19 22:05 Monocytes % 10.2 07/14/19 22:05 Eosinophils % 0.2 07/14/19 22:05 Basophils % 0.1 07/14/19 22:05 Absolute Neutrophils 9.60 k/cumm (1.2-6.7) H 07/14/19 22:05 Absolute Lymphocytes 1.10 k/cumm (1.2-3.4) L 07/14/19 22:05 Absolute Monocytes 1.22 k/cumm (0.11-0.7) H 07/14/19 22:05 Absolute Eosinophils 0.02 k/cumm (0.0-0.7) 07/14/19 22:05 Absolute Basophils 0.01 k/cumm (0.0-0.2) 07/14/19 22:05 PT 9.9 sec (9.3-11.0) 07/14/19 22:05 INR 1.0 (0.9-1.1) 07/14/19 22:05 APTT 23.4 sec (21.0-31.4) 07/14/19 22:05 Sodium 139 mmol/L (136-145) 07/15/19 06:37 Potassium 4.4 mmol/L (3.5-5.1) 07/15/19 06:37 Chloride 104 mmol/L (98-107) 07/15/19 06:37 Carbon Dioxide 25.6 mmol/L (21.0-32.0) 07/15/19 06:37 Anion Gap 9.4 mmol/L (3-11) 07/15/19 06:37 BUN 34 mg/dL (7-18) H 07/15/19 06:37 Creatinine 1.91 mg/dL (0.70-1.30) H 07/15/19 06:37 Estimated GFR/1.73 m2 35.21 (mL/min/1.73m2) 07/15/19 06:37 Glucose 118 mg/dL (74-106) H 07/15/19 06:37 Calcium 7.5 mg/dL (8.5-10.1) L 07/15/19 06:37 Total Bilirubin 0.3 mg/dL (0.2-1.0) 07/15/19 06:37 AST 14 U/L (15-37) L 07/15/19 06:37 ALT 14 U/L (16-63) L 07/15/19 06:37 Alkaline Phosphatase 47 U/L (46-116) 07/15/19 06:37 Total Protein 5.2 g/dL (6.4-8.2) L 07/15/19 06:37 Albumin 2.4 g/dL (3.4-5.0) L 07/15/19 06:37 Patient ABO/Rh O Negative 07/14/19 22:05 Antibody Screen Negative 07/14/19 22:05
[2019-07-16] VITALS (31 sets, daily range): BP systolic 102–146; BP diastolic 44–70; PULSE 53–113; RESP 14–26; TEMP 36.6–37.8; O2SAT 93–98
[2019-07-16] MEDS: Normal Saline Flush 10 ML SYR IVP ×4 (00:27→19:06)
[2019-07-16] MEDS: Normal Saline 1,000 ML 125 ML IV ×2 (05:50→21:28)
[2019-07-16 06:50] LABS: Abs Immature Grans 0.01 k/cumm (0.0-0.09); Absolute Basophil Count 0.01 k/cumm (0.0-0.2); Absolute Eosinophil Count 0.15 k/cumm (0.0-0.7); Absolute Lymphocyte Count 1.12 k/cumm (1.2-3.4); Absolute Monocyte Count 0.53 k/cumm (0.11-0.7); Absolute Neutrophil Count 4.34 k/cumm (1.2-6.7); Basophils % 0.2; Eosinophils % 2.4; Immature Grans % 0.2 %; Lymphocytes % 18.2; Mean Corp. HGB Concentration 33.3 g/dL (32.0-36.0); Mean Corpuscular Hemoglobin 30.2 pg (27.0-33.0); Mean Corpuscular Volume 90.6 fL (80-95); Mean Platelet Volume 9.5 fL (8.0-11.0); Monocytes % 8.6; Neutrophils % 70.4; Platelet Count 189 x1000/uL (130-400); RBC 2.98 m/cumm (4.50-6.00); RBC Distribution Width 13.4 % (11.8-14.1); White Blood Cell Count 6.16 k/cumm (4.4-10.8)
[2019-07-16 07:18] LABS: Anion Gap 6.9 mmol/L (3-11); BUN 29 mg/dL (7-18); CO2 25.1 mmol/L (21.0-32.0); CREATININE 1.24 mg/dL (0.70-1.30); Calcium 7.5 mg/dL (8.5-10.1); Chloride 110 mmol/L (98-107); Estimated GFR 57.97 (mL/min/1.73m2); Glucose 96 mg/dL (74-106); Magnesium 1.7 mg/dL (1.8-2.4); Potassium 4.3 mmol/L (3.5-5.1); Sodium 142 mmol/L (136-145)
[2019-07-16 07:27] LABS: Diff Comment RBC Morph Reviewed
--- NOTE | 2019-07-16 08:25 | W.PM.PROGNOT ---
Date of Service Date of service: 07/16/19 Time of Service: 15:02 Assessment and Plan Assessment and plan (1) Symptomatic anemia: Status: Acute Assessment and plan: with evidence of hypotension initially and now still quite orthostatic. Resume IVF and continue to trend H/H's - may be re-bleeding. Not ready to be discharged from the hospital. If next H/H stable, can be transferred to [facility]. (2) Hypotension: Status: Resolved Assessment and plan: Likely due to side effect of anesthesia, though anemia is contributing. No longer requiring pressors. (3) UGIB (upper gastrointestinal bleed): Status: Acute Assessment and plan: s/p EGD - with diffusely friable mucosa but no active bleeding. A clot of about 500 cc of old blood seen. Continue carafate and PO BID PPI. Continue diet. (4) Anemia due to acute blood loss: Status: Acute Assessment and plan: No active bleeding seen on EGD. Recheck H/H now. As above (5) Tracheal hemorrhage: Status: Ruled-out Assessment and plan: Likely due to mild trauma on intubation. Self-limited/resolved. (6) Kidney stones: Status: Acute Assessment and plan: at this point, asymptomatic. Cr at baseline. (7) Estrada esophagus: Status: Acute Assessment and plan: Continue PPI. Will need a repeat EGD for bx in 1 month. (8) Acute kidney injury superimposed on chronic kidney disease: Status: Resolved Assessment and plan: In setting of bleeding and likely hydronephrosis/nephrolithiasis. Resolved (9) DVT prophylaxis: Status: Acute Assessment and plan: chemical dvt ppx is contraindicated in setting of acute bleeding. TEDs/SCD's (10) Discharge planning issues: Status: Acute Assessment and plan: Full code Transfer out of ICU if H/H stable. Subjective Subjective Interval history since last seen: Quite orthostatic on VS. Reports dizziness. Denies chest pain, shortness of breath, nausea. He did become tachycardic to 120's just sitting - and sitting for a while. No bleeding. No vomiting. Tolerating food. He states he is going home tomorrow no matter what. Exam Narrative Exam Narrative: General: Somnolent middle-aged male, looks more pale than yesterday, A&Ox3, anxious, argumentative HEENT: EOMI, MMM Heart: RRR with occasional extra beat, tachycardic to 120's while seating Lungs: CTAB Abdomen: soft, nontender, nondistended Extremities: no e/c/c BLE's Objective Objective Clinical Data: Abnormal lab results 07/15/19 07/16/19 07/16/19 Range/Units 14:55 06:25 06:25 RBC 2.98 L (4.50-6.00) m/cumm Hgb 10.3 L 9.0 L (13.5-17.5) g/dL Hct 31.5 L 27.0 L (40.0-50.0) % Absolute Lymphocytes 1.12 L (1.2-3.4) k/cumm Chloride 110 H (98-107) mmol/L BUN 29 H (7-18) mg/dL Calcium 7.5 L (8.5-10.1) mg/dL Magnesium 1.7 L (1.8-2.4) mg/dL Vital Signs Temperature 36.8 C 07/16/19 03:30 Temperature Source Temporal Artery Scan 07/16/19 00:43 Pulse 93 H 07/16/19 06:00 Pulse 101 H 07/16/19 06:00 Respiratory Rate 21 07/16/19 06:00 Respiratory Effort Non-Labored 07/16/19 03:30 Respiratory Depth Normal 07/16/19 03:30 Blood Pressure 112/55 L 07/16/19 06:00 Blood Pressure Mean 69 07/16/19 06:00 Blood Pressure Position Supine 07/16/19 00:43 Pulse Oximetry 95 07/15/19 14:30 Oxygen Delivery Method Room Air 07/16/19 03:30 Oxygen Flow Rate 0 07/16/19 03:30 Pain Level 0 07/16/19 03:30 Intake & Output 07/15/19 07/15/19 07/16/19 11:59 23:59 11:59 Intake Total 810.417 / 4633.334 3822.917 / 4633.334 7.5 / 1956.5 Output Total 1650 / 1650 750 / 750 Balance 810.417 / 2983.334 2172.917 / 2983.334 1207.5 / 1207.5 Weight 75.1 kg 77.1 kg Intake: IV 810.417 / 3733.334 2922.917 / 3733.334 1957.5 / 1956.5 Oral 900 / 900 Output: Urine 1650 / 1650 700 / 700 Stool 50 / 50 Other: Urine Color Yellow Pale Yellow Urine Appearance Clear Clear Sediment Urine Odor None Comment NO voids yet since admit NO voids yet since admit few pieces of light colored debris noted in strainer. Stool Occult Blood Positive Stool Size Small Stool Characteristics Soft Gastric Occult Blood Right Nare Positive Voiding Methods Urinal Urinal Laboratory Results WBC 6.16 k/cumm (4.4-10.8) 07/16/19 06:25 RBC 2.98 m/cumm (4.50-6.00) L 07/16/19 06:25 Hgb 9.0 g/dL (13.5-17.5) L 07/16/19 06:25 Hct 27.0 % (40.0-50.0) L 07/16/19 06:25 MCV 90.6 fL (80-95) 07/16/19 06:25 MCH 30.2 pg (27.0-33.0) 07/16/19 06:25 MCHC 33.3 g/dL (32.0-36.0) 07/16/19 06:25 RDW 13.4 % (11.8-14.1) 07/16/19 06:25 Plt Count 189 x1000/uL (130-400) 07/16/19 06:25 MPV 9.5 fL (8.0-11.0) 07/16/19 06:25 Immature Gran % 0.2 % 07/16/19 06:25 Neutrophils % 70.4 07/16/19 06:25 Lymphocytes % 18.2 07/16/19 06:25 Monocytes % 8.6 07/16/19 06:25 Eosinophils % 2.4 07/16/19 06:25 Basophils % 0.2 07/16/19 06:25 Absolute Neutrophils 4.34 k/cumm (1.2-6.7) 07/16/19 06:25 Absolute Lymphocytes 1.12 k/cumm (1.2-3.4) L 07/16/19 06:25 Absolute Monocytes 0.53 k/cumm (0.11-0.7) 07/16/19 06:25 Absolute Eosinophils 0.15 k/cumm (0.0-0.7) 07/16/19 06:25 Absolute Basophils 0.01 k/cumm (0.0-0.2) 07/16/19 06:25 Differential Comment Rbc morph reviewed 07/16/19 06:25 RBC Morphology See below 07/16/19 06:25 PT 9.9 sec (9.3-11.0) 07/14/19 22:05 INR 1.0 (0.9-1.1) 07/14/19 22:05 APTT 23.4 sec (21.0-31.4) 07/14/19 22:05 Sodium 142 mmol/L (136-145) 07/16/19 06:25 Potassium 4.3 mmol/L (3.5-5.1) 07/16/19 06:25 Chloride 110 mmol/L (98-107) H 07/16/19 06:25 Carbon Dioxide 25.1 mmol/L (21.0-32.0) 07/16/19 06:25 Anion Gap 6.9 mmol/L (3-11) 07/16/19 06:25 BUN 29 mg/dL (7-18) H 07/16/19 06:25 Creatinine 1.24 mg/dL (0.70-1.30) D 07/16/19 06:25 Estimated GFR/1.73 m2 57.97 (mL/min/1.73m2) 07/16/19 06:25 Glucose 96 mg/dL (74-106) 07/16/19 06:25 Calcium 7.5 mg/dL (8.5-10.1) L 07/16/19 06:25 Magnesium 1.7 mg/dL (1.8-2.4) L 07/16/19 06:25 Total Bilirubin 0.3 mg/dL (0.2-1.0) 07/15/19 06:37 AST 14 U/L (15-37) L 07/15/19 06:37 ALT 14 U/L (16-63) L 07/15/19 06:37 Alkaline Phosphatase 47 U/L (46-116) 07/15/19 06:37 Total Protein 5.2 g/dL (6.4-8.2) L 07/15/19 06:37 Albumin 2.4 g/dL (3.4-5.0) L 07/15/19 06:37 Patient ABO/Rh O Negative 07/14/19 22:05 Antibody Screen Negative 07/14/19 22:05
[2019-07-16] MEDS: Tamsulosin 0.4 MG CAPCR PO (09:28)
[2019-07-16] MEDS: Sucralfate 1 GM TAB PO ×4 (09:28→21:30)
[2019-07-16] MEDS: MAGNESIUM SULFATE 2 GM/50 ML BAG IVPB (09:57)
[2019-07-16] MEDS: Docusate Sodium 100 MG CAP PO (09:58)
--- NOTE | 2019-07-16 11:15 | W.NUTRFU ---
Date of service: 07/16/19 Time of Service: 11:15 Nutritional Follow up NOTE: Provided education to Soto about low acid, soft foods for when he discharges. Provided contact information if follow up needed. Time Spent in Nutritional Counseling and Treatment: 15 min spent face to face
[2019-07-16 12:22] LABS: HCT 28.3 % (40.0-50.0); HGB 9.4 g/dL (13.5-17.5)
--- NOTE | 2019-07-16 14:01 | CMPROGNOTE_ITS ---
- If Service Date Differs Date of service: 07/16/19 Time of Service: 14:01 Care Management Progress Note S/O: Soto was sitting up in bed when CM met with him. He reported that he was feeling better, and that he is hoping to go home soon. He reported that his will be here soon, and will be driving him home, if he is discharged today. He stated that he is very independent. CM will continue to follow. A: Soto is a 68 year old male admitted to [facility] for UGI Bleed, Kidney Stones P: Anticipate Soto will return home when medically cleared with no additional services. He will follow up with his PCP and specialists, as recommended. His will drive him home when ready via private vehicle. CM will continue to follow.
--- NOTE | 2019-07-16 14:40 | W.PM.PROGNOT ---
Date of Service Date of service: 07/16/19 Time of Service: 12:15 Assessment and Plan Assessment and plan (1) UGIB (upper gastrointestinal bleed): Status: Acute Assessment and plan: He does not have signs of ongoing bleeding HgB did drift down from yesterday (10.6 to 9.0 this am) but repeat at noon was 9.4 Due to large amount of blood found in stomach yesterday, the cautious plan would be continued monitoring until tomorrow He is very motivated to leave, so the alterative is a follow up outpatient HgB tomorrow. Will discuss with hospitalist. Subjective Subjective Interval history since last seen: Denies abdominal pain No hematemesis or dark stools - has not recently had a BM Tolerating PO Exam Narrative Exam Narrative: No acute distress Objective Objective Clinical Data: Abnormal lab results 07/15/19 07/16/19 07/16/19 Range/Units 14:55 06:25 06:25 RBC 2.98 L (4.50-6.00) m/cumm Hgb 10.3 L 9.0 L (13.5-17.5) g/dL Hct 31.5 L 27.0 L (40.0-50.0) % Absolute Lymphocytes 1.12 L (1.2-3.4) k/cumm Chloride 110 H (98-107) mmol/L BUN 29 H (7-18) mg/dL Calcium 7.5 L (8.5-10.1) mg/dL Magnesium 1.7 L (1.8-2.4) mg/dL 07/16/19 Range/Units 12:15 RBC (4.50-6.00) m/cumm Hgb 9.4 L (13.5-17.5) g/dL Hct 28.3 L (40.0-50.0) % Absolute Lymphocytes (1.2-3.4) k/cumm Chloride (98-107) mmol/L BUN (7-18) mg/dL Calcium (8.5-10.1) mg/dL Magnesium (1.8-2.4) mg/dL Vital Signs Temperature 98.2 F 07/16/19 14:10 Temperature Source Temporal Artery Scan 07/16/19 11:59 Pulse 85 07/16/19 14:10 Pulse 88 07/16/19 12:00 Respiratory Rate 23 07/16/19 12:00 Respiratory Effort Non-Labored 07/16/19 11:59 Respiratory Depth Normal 07/16/19 11:59 Blood Pressure 142/65 H 07/16/19 14:10 Blood Pressure Mean 79 07/16/19 12:00 Blood Pressure Position Supine 07/16/19 00:43 Pulse Oximetry 94 L 07/16/19 11:59 Oxygen Delivery Method Room Air 07/16/19 11:59 Oxygen Flow Rate 0 07/16/19 11:59 Pain Level 0 07/16/19 14:10 Intake & Output 07/15/19 07/16/19 07/16/19 23:59 11:59 23:59 Intake Total 3822.917 / 4633.334 2677.5 / 3397.5 720 / 3397.5 Output Total 1650 / 1650 1350 / 1350 Balance 2172.917 / 2983.334 1327.5 / 2047.5 720 / 2047.5 Weight 169 lb 15.622 oz Intake: IV 2922.917 / 3733.334 1957.5 / 1957.5 Oral 900 / 900 720 / 1440 720 / 1440 Output: Urine 1650 / 1650 1300 / 1300 Stool 50 / 50 Other: Urine Color Yellow Pale Yellow Urine Appearance Clear Clear Sediment Urine Odor None Comment NO voids yet since admit IV fluids are D/C per MD order Stool Occult Blood Positive Stool Size Small Stool Characteristics Soft Voiding Methods Urinal Urinal Laboratory Results WBC 6.16 k/cumm (4.4-10.8) 07/16/19 06:25 RBC 2.98 m/cumm (4.50-6.00) L 07/16/19 06:25 Hgb 9.4 g/dL (13.5-17.5) L 07/16/19 12:15 Hct 28.3 % (40.0-50.0) L 07/16/19 12:15 MCV 90.6 fL (80-95) 07/16/19 06:25 MCH 30.2 pg (27.0-33.0) 07/16/19 06:25 MCHC 33.3 g/dL (32.0-36.0) 07/16/19 06:25 RDW 13.4 % (11.8-14.1) 07/16/19 06:25 Plt Count 189 x1000/uL (130-400) 07/16/19 06:25 MPV 9.5 fL (8.0-11.0) 07/16/19 06:25 Immature Gran % 0.2 % 07/16/19 06:25 Neutrophils % 70.4 07/16/19 06:25 Lymphocytes % 18.2 07/16/19 06:25 Monocytes % 8.6 07/16/19 06:25 Eosinophils % 2.4 07/16/19 06:25 Basophils % 0.2 07/16/19 06:25 Absolute Neutrophils 4.34 k/cumm (1.2-6.7) 07/16/19 06:25 Absolute Lymphocytes 1.12 k/cumm (1.2-3.4) L 07/16/19 06:25 Absolute Monocytes 0.53 k/cumm (0.11-0.7) 07/16/19 06:25 Absolute Eosinophils 0.15 k/cumm (0.0-0.7) 07/16/19 06:25 Absolute Basophils 0.01 k/cumm (0.0-0.2) 07/16/19 06:25 Differential Comment Rbc morph reviewed 07/16/19 06:25 RBC Morphology See below 07/16/19 06:25 PT 9.9 sec (9.3-11.0) 07/14/19 22:05 INR 1.0 (0.9-1.1) 07/14/19 22:05 APTT 23.4 sec (21.0-31.4) 07/14/19 22:05 Sodium 142 mmol/L (136-145) 07/16/19 06:25 Potassium 4.3 mmol/L (3.5-5.1) 07/16/19 06:25 Chloride 110 mmol/L (98-107) H 07/16/19 06:25 Carbon Dioxide 25.1 mmol/L (21.0-32.0) 07/16/19 06:25 Anion Gap 6.9 mmol/L (3-11) 07/16/19 06:25 BUN 29 mg/dL (7-18) H 07/16/19 06:25 Creatinine 1.24 mg/dL (0.70-1.30) D 07/16/19 06:25 Estimated GFR/1.73 m2 57.97 (mL/min/1.73m2) 07/16/19 06:25 Glucose 96 mg/dL (74-106) 07/16/19 06:25 Calcium 7.5 mg/dL (8.5-10.1) L 07/16/19 06:25 Magnesium 1.7 mg/dL (1.8-2.4) L 07/16/19 06:25 Total Bilirubin 0.3 mg/dL (0.2-1.0) 07/15/19 06:37 AST 14 U/L (15-37) L 07/15/19 06:37 ALT 14 U/L (16-63) L 07/15/19 06:37 Alkaline Phosphatase 47 U/L (46-116) 07/15/19 06:37 Total Protein 5.2 g/dL (6.4-8.2) L 07/15/19 06:37 Albumin 2.4 g/dL (3.4-5.0) L 07/15/19 06:37 Patient ABO/Rh O Negative 07/14/19 22:05 Antibody Screen Negative 07/14/19 22:05
--- NOTE | 2019-07-16 17:22 | PHARADMIT ---
Admission Pharmacy Clinical Review UGI bleed, kidney stone Code Status Full Code Current Weight 77.1 kg Renally Cleared and Narrow Therapeutic Index Meds CrCl 53ml/min QTc Value / Action Taken QTc 429 BP Control, Fever BP 142/65 supine, 126/44 standing, 107/57 standing Electrolytes reviewed Na 142, K+ 4.3, Mag 1.7 (replaced with 2g IV) DVT Prophylaxis C/I due to GI bleed... TEDS/SCD's Opiate Usage / Scheduled Bowel Regimen Ordered none, yes Plt/SCr for Heparin / Enoxaparin Plt 189, Scr 1.24 INR for Warfarin H/H stable, WBC/Bands H/H 9.4/28.3 (up from this AM, down from admission), WBC 6.16 Antibiotic appropriateness Cultures and Sensitivities Surgical ABX d/c within 24 hr DM control / Insulin Dosing Heart Failure (Check EF%) (GIANCARLO's, B-Block, Diuretics) IV to PO Switch PO protonix changed back to IV... Home Meds Reviewed Home Meds Not Ordered Comments 500 CC old blood found in stomach during scope stone to pass on its own was hypotensive likely due to anesthesia no active bleeding wants to go home tomorrow no matter what Monitor H/H closely
[2019-07-16 18:24] LABS: HCT 29.9 % (40.0-50.0)
[2019-07-16] MEDS: Pantoprazole 40 MG VIAL IVP (19:06)
[2019-07-17] VITALS (23 sets, daily range): BP systolic 93–132; BP diastolic 41–87; PULSE 60–102; RESP 15–28; TEMP 36.7–36.8; O2SAT 92–96
[2019-07-17 00:22] LABS: HCT 26.9 % (40.0-50.0)
[2019-07-17 06:47] LABS: Abs Immature Grans 0.01 k/cumm (0.0-0.09); Absolute Basophil Count 0.02 k/cumm (0.0-0.2); Absolute Eosinophil Count 0.17 k/cumm (0.0-0.7); Absolute Lymphocyte Count 1.39 k/cumm (1.2-3.4); Absolute Monocyte Count 0.71 k/cumm (0.11-0.7); Absolute Neutrophil Count 4.21 k/cumm (1.2-6.7); Basophils % 0.3; Eosinophils % 2.6; HCT 27.8 % (40.0-50.0); HGB 9.3 g/dL (13.5-17.5); Immature Grans % 0.2 %; Lymphocytes % 21.4; Mean Corp. HGB Concentration 33.5 g/dL (32.0-36.0); Mean Corpuscular Hemoglobin 30.1 pg (27.0-33.0); Mean Platelet Volume 9.6 fL (8.0-11.0); Monocytes % 10.9; Neutrophils % 64.6; Platelet Count 206 x1000/uL (130-400); RBC 3.09 m/cumm (4.50-6.00); RBC Distribution Width 13.3 % (11.8-14.1); White Blood Cell Count 6.51 k/cumm (4.4-10.8)
[2019-07-17] MEDS: Normal Saline Flush 10 ML SYR IVP (06:58)
[2019-07-17] MEDS: Pantoprazole 40 MG VIAL IVP (06:58)
[2019-07-17 07:00] LABS: Anion Gap 9.8 mmol/L (3-11); BUN 16 mg/dL (7-18); CO2 25.2 mmol/L (21.0-32.0); CREATININE 1.16 mg/dL (0.70-1.30); Calcium 7.8 mg/dL (8.5-10.1); Chloride 107 mmol/L (98-107); Glucose 103 mg/dL (74-106); Magnesium 1.9 mg/dL (1.8-2.4); Potassium 3.9 mmol/L (3.5-5.1); Sodium 142 mmol/L (136-145)
[2019-07-17] MEDS: Sucralfate 1 GM TAB PO ×2 (08:01→12:11)
--- NOTE | 2019-07-17 12:43 | DSE_ITS ---
Date of service: 07/17/19 Time of Service: 12:44 DS: Diagnosis Discharge Diagnosis (1) UGIB (upper gastrointestinal bleed): Status: Acute (2) Anemia due to acute blood loss: Status: Acute (3) Gastritis: Status: Acute (4) Esophagitis: Status: Acute (5) Symptomatic anemia: Status: Acute (6) Hypotension: Status: Resolved (7) Tracheal hemorrhage: Status: Ruled-out (8) Kidney stones: Status: Resolved (9) Estrada esophagus: Status: Acute (10) Acute kidney injury superimposed on chronic kidney disease: Status: Resolved (11) Orthostasis: Status: Resolved Discharge Plan Disposition Patient Disposition: HOME Condition: Stable Discharge Details Chief Complaint: GI Bleed Clinical Impression: UGIB (upper gastrointestinal bleed), Calculus of distal right ureter Reason For Visit: UGI BLEED, RIGHT URETERL LITHIASIS WITH RENAL COLI Admit Date/Time: 07/14/19 23:47 Admit Provider: Soto Short Attending Provider: Fang Taylor Primary Care Provider: Rubin Penn ED Provider: Dhruv Salgado Hospital Course Hospital Course: Mr Aguilar is a 68 year old male with PMHx of testicular ca s/p orchiectomy, nephrolithiasis, chronic tremor, who was admitted to [facility] hospitalist service on 07/14/2019 for upper GI bleeding. Earlier the same day the patient was seen at [facility] for treatment of nephrolithiasis (in transit), and the patient did experience nausea/vomiting, so there was a concern for a Claudia-Pritchett tear. The patient was made NPO, treated with IV protonix, and underwent an EGD on 07/15/2019, which revealed a large clot of coagulated blood (about 500 cc), no active bleeding or a source where the bleeding could have happened from, but the patient did have gastric and esophageal inflammation. The patient did have to be intubated to have his airway protected while the gastric clot was being evacuated. On removal of his ET tube, blood streaking was noted, but CXR and further hospital course ruled out pulmonary hemorrhage. Post anesthesia, the patient was hypotensive, but the BP normalized after a bolus of IVF and a short infusion of phenylephrine, for which he did have to be upgraded to ICU level. Once stable, the patient was permitted a soft bland low acid, no spice diet and placed on PO PPI. However, his hemoglobin did drift down on hospital day 2 - now, we believe, due to dilutional anemia. The patient was quiet orthostatic as well. He was kept another night to make sure that hemoglobins remained stable and that he got further IV hydration. His flomax was discontinued as he had passed his kidney stone. With this, his orthostasis had resolved. He is medically stable for discharge home today on protonix 40 mg PO BID, carafate AC/HS, instructions to follow soft, bland, low acid, no fat diet, and follow up with Dr Dukes as scheduled on 07/28/2019. He will likely need another EGD in the near future. The patient verbalized that he will make his own appointment with a new PCP in [place]. Care for patient and completion of his discharge summary on day of discharge took 45 minutes. Home Meds and New Rx's Prescriptions: New acetaminophen [Tylenol] 325 mg Tablet 650 mg PO Q4H PRN PRNQty: 30 RF: 0 sucralfate 1 gram Tablet 1 g PO AC & HS Qty: 120 RF: 0 docusate sodium [Colace] 100 mg Capsule 100 mg PO TID PRN PRNQty: 30 RF: 0 Protonix [address] griggs susp in packet 40 mg PO BID Qty: 60 RF: 0 Continued ondansetron HCl 4 mg Tablet 4 mg PO Q6H PRNRF: 0 propranolol 20 mg Tablet 20 mg PO DAILY PRN (Reason: Tremor(S)) RF: 0 Discontinued tamsulosin 0.4 MG capsule 0.4 mg PO DAILY@0830 Qty: 10 RF: 0 oxycodone 5 mg Tablet 5 mg PO Q6H PRNRF: 0 Discharge Instructions Instructions: Sucralfate (By mouth), Pantoprazole (By mouth), Gastritis (DC), Diet for Stomach Ulcers and Gastritis (GEN), Estrada Esophagus (DC), Esophagitis (DC) Additional Instructions: Follow up scheduled with Dr. Dukes 07/28/19 at 9:30AM-contact [phone] Return to the hospital with any dizziness, palpitations/chest pain, weakness, chest pain, shortness of breath, vomiting or passing blood. Arrange follow up with your new PCP. Referrals: Roseline Dukes MD [ [facility] STAFF PHYSICIAN] - 07/28/19 9:30 am Activity:: Activity as Tolerated Equipment/Supplies:: No Equipment Needed Diet:: Soft bland, low acid, no spice diet Discharge Orders Discharge Orders: Discharge Order (Routine); Ordered 07/17/19 Ordered By: Fang Taylor Other Ambulatory Orders: Complete Blood Count No Diff (Routine) Timeframe: [id number] Location: Determined by Patient Ordered By: Fang Taylor DS: Summary Status at Discharge Functional status at discharge: independent ambulation Overall status at discharge: patient is progressing back to baseline Mental Status: mental status grossly normal Speech and Movement: speech and movement normal Mood: congruent mood Affect: normal affect Exam Narrative Exam Narrative: General: middle-aged male, looks more pale than yesterday, A&Ox3, anxious, cooperative HEENT: EOMI, MMM Heart: RRR with occasional extra beat Lungs: CTAB Abdomen: soft, nontender, nondistended Extremities: no e/c/c BLE's Psych Mental Status: mental status grossly normal Speech and Movement: speech and movement normal Mood: congruent mood Affect: normal affect DS: Data Vitals/I&O Vitals and I&O: Vital Signs Temperature 36.7 C 07/17/19 12:34 Temperature Source Temporal Artery Scan 07/17/19 12:34 Pulse 80 07/17/19 12:14 Pulse 80 07/17/19 12:14 Respiratory Rate 19 07/17/19 12:14 Respiratory Effort Non-Labored 07/17/19 12:34 Respiratory Depth Normal 07/17/19 12:34 Respiratory Pattern Normal 07/17/19 12:34 Blood Pressure 124/68 07/17/19 12:14 Blood Pressure Mean 82 07/17/19 12:14 Blood Pressure Position Supine 07/17/19 12:34 Pulse Oximetry 96 07/17/19 12:34 Oxygen Delivery Method Room Air 07/17/19 12:34 Oxygen Flow Rate 0 07/17/19 12:34 Pain Level 0 07/17/19 12:34 Intake & Output 07/16/19 07/17/19 07/17/19 23:59 11:59 23:59 Intake Total 1440 / 4700.833 320 / 540 220 / 540 Output Total 1950 / 3300 1175 / 1175 Balance -510 / 1400.833 -855 / -635 220 / -635 Intake: IV 0 / 0 Oral 1440 / 2160 320 / 540 220 / 540 Output: Urine 1950 / 3250 1175 / 1175 Other: Urine Color Yellow Yellow Urine Appearance Clear Clear Urine Odor Normal Normal Comment using urinal Patient stands to void in urinal. Patient stands to void in urinal. Voiding Methods Urinal Urinal Data Completed and Pending Completed studies during hospitalization [Text1]: CXR 07/14/2019: Tip of the nasogastric tube terminates in the distal esophagus and should be advanced. US renal 07/15/2019: 1. Prominence of the right renal collecting system, which may represent mild hydronephrosis. 2. Large postvoid urinary bladder volume. 3. Debris seen within the urinary bladder. Please correlate clinically. CXR 07/15/2019: Bilateral basilar atelectasis. Labs on day of discharge: Labs from last 24 hours 07/17/19 07/17/19 07/17/19 06:10 06:10 00:15 WBC 6.51 RBC 3.09 L Hgb 9.3 L 9.0 L Hct 27.8 L 26.9 L MCV 90.0 MCH 30.1 MCHC 33.5 RDW 13.3 Plt Count 206 MPV 9.6 Immature Gran % 0.2 Neutrophils % 64.6 Lymphocytes % 21.4 Monocytes % 10.9 Eosinophils % 2.6 Basophils % 0.3 Absolute Neutrophils 4.21 Absolute Lymphocytes 1.39 Absolute Monocytes 0.71 H Absolute Eosinophils 0.17 Absolute Basophils 0.02 Sodium 142 Potassium 3.9 Chloride 107 Carbon Dioxide 25.2 Anion Gap 9.8 BUN 16 D Creatinine 1.16 Estimated GFR/1.73 m2 >= 60.00 Glucose 103 Calcium 7.8 L Magnesium 1.9 07/16/19 18:05 WBC RBC Hgb 10.0 L Hct 29.9 L MCV MCH MCHC RDW Plt Count MPV Immature Gran % Neutrophils % Lymphocytes % Monocytes % Eosinophils % Basophils % Absolute Neutrophils Absolute Lymphocytes Absolute Monocytes Absolute Eosinophils Absolute Basophils Sodium Potassium Chloride Carbon Dioxide Anion Gap BUN Creatinine Estimated GFR/1.73 m2 Glucose Calcium Magnesium [facility] Medical History (Updated 07/17/19 @ 12:57 by Fang Taylor MD) CKD (chronic kidney disease) (Acute) Kidney stones (Resolved) Testicular cancer (Inactive) Tremor (Chronic) Surgical History Hx of abdominal surgery (Chronic) for intussusception S/P orchiectomy (Chronic) Social History Smoking/Tobacco Use Status: Never Alcohol Intake: current Alcohol Intake frequency: a few times a month Substance use type: does not use Do you feel safe at home: Yes Do you feel safe in your relationship?: Yes
--- NOTE | 2019-07-17 13:13 | W.NUTCONSULT ---
Date of service: 07/17/19 Time of Service: 13:13 Nutritional Consult ASSESSMENT: Appreciate RN request for list of low acid producing foods as a way to prevent GI bleeding in the future. Hgb now 9's. Mr. Aguilar states his problem started with nausea/vomiting while experiencing kidney stones. Here he started eating a regular diet noted as low acid. States he eats on the run, frequently at [employer] type venues and he always has a coke. He admits to eating a lot of 'junk' food. Did not do a full diet recall. He already has a list of acid / alkaline producing foods. I presented him with another that had some contradictory information, so we left it he will use the list he was originally given. He questions his list because many of the foods he received here during his stay are on the list. NUTRITIONAL DIAGNOSIS: Iron deficiency secondary to GI bleed not related to nutritional intake; low nutient intake secondary to high sugar high processed, nutrient poor food choices. INTERVENTION: Reviewed the list with him. He is dismayed there is very few grains of which he does not eat, and no fish or meat on his list of acceptable foods. He agrees to cut out sugar sweetened beverages and processed meats; will cut back on meat portions, grains and increase acceptable vegetables. 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 MONITORING AND EVALUATION: Discharged imminently; states he has support outside he will access to work on his food choices He has our contact information for follow up as he desires. Time Spent in Nutritional Counseling and Treatment: 15 minutes face to face
--- NOTE | 2019-07-17 13:57 | PDOC.CMDIS ---
- If Service Date Differs Date of service: 07/17/19 Time of Service: 13:58 LACE Index Scoring Tool - Questions: Length of Stay (in days): 4 - 6 Acuity (Admit via E.D.?): Yes Comorbidities: Any Tumor E.D. Visits: 2 - Answers: Total Score: 11 Risk of Readmission: High Risk Care Management Discharge Reason for Hospitalization: Upper gastrointestinal bleed, kidney stone Discharge Plan: Soto is being discharged home today he does not need any additional services. Soto will seek out a new primary care provider, he does not want to return to [facility] as he wants a male provider. CM provided Soto with a provider in [place] Dr.Peter Carrintgon and the contact information. Soto prefers to follow up with provider on his own. Soto does have a follow up visit with on 07/28/2019. Soto will transport home with his spouse at time of discharge. Patient/Family Education Needs: Discharge education, limitations and follow up plan of care including ask me three and self management.
== END 2019-07-17 15:10 | disposition home or self-care (01) | DRG 378 ==
LOC: ER 07-15 00:34 → ICU 07-15 01:25
PROVIDERS: Surgery; Admitting Provider Family Medicine; Emergency Provider Emergency Medicine; PCP Internal Medicine; Visit Provider Internal Medicine
PROC: 0DJ68ZZ Inspection of Stomach, Via Natural or Artificial Opening Endoscopic (ICD-10-PCS; CPT 43235; principal; 2019-07-15 11:15)
DX: K92.2 Gastrointestinal hemorrhage, unspecified (principal); N20.1 Calculus of ureter; D62 Acute posthemorrhagic anemia; N17.9 Acute kidney failure, unspecified; J98.11 Atelectasis; K92.0 Hematemesis; K29.70 Gastritis, unspecified, without bleeding; K44.9 Diaphragmatic hernia without obstruction or gangrene; K20.9 Esophagitis, unspecified; I95.81 Postprocedural hypotension; I95.1 Orthostatic hypotension; N18.9 Chronic kidney disease, unspecified; K22.70 Barrett's esophagus without dysplasia
CPT/HCPCS: 43235; 31500; 36415; 71045; 76770; 80048; 80053; 85027; 86850; 86900; 86901; 93005; 96361; 96374; 96375; 99222; 99231; 99232; 99239; 99253; 99291; NC; 83735; 85014; 85018; 85025; 85610; 85730; 93010; J2270; J2405

== ENCOUNTER 2019-07-29 15:24 | Outpatient (REF) | payer BC, MEDICARE, SELFPAY ==
[2019-08-06 15:02] LABS: Helicobacter pylori Ag, Feces Negative (Negative)
== END 2019-07-29 15:44 ==
LOC: LBN 15:24
PROVIDERS: PCP Internal Medicine; Visit Provider Internal Medicine
DX: K92.2 Gastrointestinal hemorrhage, unspecified (principal)
CPT/HCPCS: 87338

== ENCOUNTER 2019-08-21 16:03 | Outpatient (REF) | payer BC, MEDICARE, SELFPAY ==
[2019-08-21 20:32] LABS: Absolute Basophil Count 0.01 k/cumm (0.0-0.2); Absolute Eosinophil Count 0.15 k/cumm (0.0-0.7); Absolute Monocyte Count 0.36 k/cumm (0.11-0.7); Absolute Neutrophil Count 3.92 k/cumm (1.2-6.7); Basophils % 0.2; Eosinophils % 2.6; HCT 39.1 % (40.0-50.0); HGB 12.7 g/dL (13.5-17.5); Mean Corp. HGB Concentration 32.5 g/dL (32.0-36.0); Mean Corpuscular Hemoglobin 29.1 pg (27.0-33.0); Mean Corpuscular Volume 89.5 fL (80-95); Mean Platelet Volume 9.9 fL (8.0-11.0); Monocytes % 6.2; Platelet Count 303 x1000/uL (130-400); RBC 4.37 m/cumm (4.50-6.00); RBC Distribution Width 13.3 % (11.8-14.1); White Blood Cell Count 5.84 k/cumm (4.4-10.8)
[2019-08-21 21:14] LABS: Ferritin 40 ng/mL (26-388)
== END 2019-08-21 16:23 ==
LOC: NCHCN 16:03
PROVIDERS: PCP Internal Medicine; Visit Provider Internal Medicine
DX: K92.2 Gastrointestinal hemorrhage, unspecified (principal); K22.70 Barrett's esophagus without dysplasia
CPT/HCPCS: 82728; 85025

== ENCOUNTER 2020-04-25 14:20 | Outpatient (REF) | payer BC, SELFPAY ==
[2020-04-28 16:19] LABS: SARS-CoV-2 RNA Undetected (Undetected); SARS-CoV-2 Specimen Source Nasal
== END 2020-04-25 14:40 ==
LOC: NCHCN 14:20
PROVIDERS: PCP Internal Medicine; Visit Provider Nurse Practitioner Family
DX: Z20.828 Contact with and (suspected) exposure to other viral communicable diseases (principal)
CPT/HCPCS: U0003

== ENCOUNTER 2020-05-17 10:26 | Outpatient (REF) | payer BC, SELFPAY ==
[2020-05-17 21:27] LABS: HCT 42.6 % (40.0-50.0); MCH 29.5 pg (27.0-33.0); MCHC 32.9 % (32.0-36.0); MCV 89.9 fL (80-95); MPV 9.6 fL (8.0-11.0); Platelet Count 421 10^3/uL (130-400); RBC 4.74 10^6/uL (4.36-5.78); RDW 12.3 % (11.8-14.1); RDW-SD 40.6 fL
[2020-05-17 21:55] LABS: Alkaline Phosphatase 76 U/L (46-116); Ferritin 163 ng/mL (26-388)
[2020-05-17 22:11] LABS: ESR 84 mm/hr (1-20)
== END 2020-05-17 10:46 ==
LOC: NCHCN 10:26
PROVIDERS: PCP Internal Medicine; Visit Provider Nurse Practitioner Family
DX: M75.01 Adhesive capsulitis of right shoulder (principal); Z85.47 Personal history of malignant neoplasm of testis; G25.0 Essential tremor; M25.511 Pain in right shoulder
CPT/HCPCS: 85027; 85652; 82728; 84075

== ENCOUNTER 2020-05-19 21:26 | Outpatient (REF) | payer BC, SELFPAY ==
[2020-05-19 21:48] LABS: C-Reactive Protein 8.81 mg/dL (0.0-0.3)
[2020-05-23 11:27] LABS: Lyme Ab w Rflx to Lyme Confirm Negative (Negative)
== END 2020-05-19 21:46 ==
LOC: NCHCN 21:26
PROVIDERS: PCP Internal Medicine; Visit Provider Internal Medicine
DX: M89.50 Osteolysis, unspecified site (principal)
CPT/HCPCS: 86140; 86618

== ENCOUNTER 2020-05-30 20:44 | Outpatient (REF) | payer BC, MEDICARE, SELFPAY ==
[2020-05-30 21:34] LABS: ESR 22 mm/hr (1-20)
[2020-05-31 16:30] LABS: CRP, High Sensitivity 8.47 mg/L (See Note)
== END 2020-05-30 21:04 ==
LOC: NCHCN 20:44
PROVIDERS: PCP Internal Medicine; Visit Provider Internal Medicine
DX: M06.4 Inflammatory polyarthropathy (principal)
CPT/HCPCS: 85652; 86141

== ENCOUNTER 2020-08-25 08:07 | Outpatient (REF) | payer BC, MEDICARE, SELFPAY ==
[2020-08-25 14:17] LABS: ALT 26 U/L (16-63); AST 15 U/L (15-37); Albumin 3.5 g/dL (3.4-5.0); Alkaline Phosphatase 68 U/L (46-116); Anion Gap 7.8 mmol/L (3-11); BUN 16 mg/dL (7-18); Bilirubin, Total 0.4 mg/dL (0.2-1.0); CO2 29.2 mmol/L (21.0-32.0); CREATININE 1.1 mg/dL (0.70-1.30); Calculated LDL 236 mg/dL (<100); Chloride 106 mmol/L (98-107); Cholesterol 326 mg/dL (<200); Glucose 93 mg/dL (74-106); HDL Cholesterol 61 mg/dL (40-60); Potassium 4.2 mmol/L (3.5-5.1); Sodium 143 mmol/L (136-145); Total Protein 6.8 g/dL (6.4-8.2); Triglyceride 147 mg/dL (<150)
== END 2020-08-25 08:08 | disposition home or self-care (01) ==
LOC: NCHCN 08:07
PROVIDERS: PCP Internal Medicine; Visit Provider Internal Medicine
DX: Z00.00 Encounter for general adult medical examination without abnormal findings (principal); Z13.220 Encounter for screening for lipoid disorders; Z13.228 Encounter for screening for other metabolic disorders; Z12.5 Encounter for screening for malignant neoplasm of prostate
CPT/HCPCS: 80053; 80061; 84153

== ENCOUNTER 2020-09-27 09:17 | Outpatient (REF) | payer BC, MEDICARE, SELFPAY ==
[2020-09-27 13:09] LABS: ESR 16 mm//hr (0-20)
[2020-09-27 13:14] LABS: ALT 20 U/L (16-63); AST 17 U/L (15-37); Albumin 3.4 g/dL (3.4-5.0); Alkaline Phosphatase 63 U/L (46-116); Anion Gap 5.2 mmol/L (3-11); BUN 17 mg/dL (7-18); Bilirubin, Total 0.4 mg/dL (0.2-1.0); CO2 29.8 mmol/L (21.0-32.0); CREATININE 1.1 mg/dL (0.70-1.30); Calcium 8.7 mg/dL (8.5-10.1); Chloride 109 mmol/L (98-107); Glucose 92 mg/dL (74-106); Potassium 4.1 mmol/L (3.5-5.1); Sodium 144 mmol/L (136-145); Total Protein 6.6 g/dL (6.4-8.2)
[2020-09-27 16:28] LABS: Rheumatoid Factor <8.6 IU/mL (<12.0)
[2020-09-28 09:25] LABS: Cyclic Citrullinated Peptide <2.5 U/mL (<5.0)
[2020-09-28 14:59] LABS: ANA Interpretation Negative (Negative)
== END 2020-09-27 09:18 | disposition home or self-care (01) ==
LOC: NCHCN 09:17
PROVIDERS: Internal Medicine Rheumatology; PCP Internal Medicine; Visit Provider Internal Medicine
DX: M35.3 Polymyalgia rheumatica (principal); M25.59 Pain in other specified joint
CPT/HCPCS: 80053; 85652; 86200; 86038; 86431

== ENCOUNTER 2020-10-03 13:49 | Outpatient (REF) | payer BC, MEDICARE, SELFPAY ==
[2020-10-03 14:57] LABS: Bilirubin Negative (Negative); Blood Negative (Negative); Clarity Cloudy (Clear); Glucose Negative (Negative); Ketones Negative (Negative); Leukocyte Esterase Negative (Negative); Nitrite Negative (Negative); Specific Gravity >= 1.030 (1.005-1.025); Urobilinogen 0.2 EU/dL (Up TO 0.2); pH 5.5 (5-8)
== END 2020-10-03 13:50 | disposition home or self-care (01) ==
LOC: NCHCN 13:49
PROVIDERS: PCP Internal Medicine; Visit Provider Internal Medicine
DX: R82.998 Other abnormal findings in urine (principal); R97.20 Elevated prostate specific antigen [PSA]
CPT/HCPCS: 81003; 87086

== ENCOUNTER 2021-01-03 13:42 | Outpatient (REF) | payer BC, SELFPAY ==
[2021-01-03 14:17] LABS: Abs Immature Grans 0.02 10^3/uL (0.0-0.06); Absolute Basophil Count 0.02 10^3/uL (0.0-0.2); Absolute Eosinophil Count 0.13 10^3/uL (0.0-0.7); Absolute Lymphocyte Count 0.88 10^3/uL (1.2-3.4); Absolute Monocyte Count 0.55 10^3/uL (0.1-0.8); Absolute Neutrophil Count 4.92 10^3/uL (1.2-6.7); Basophils % 0.3; HCT 44.6 % (40.0-50.0); HGB 14.5 g/dL (13.5-17.5); Immature Grans % 0.3; Lymphocytes % 13.5; MCH 29.4 pg (27.0-33.0); MCHC 32.5 % (32.0-36.0); MCV 90.3 fL (80-95); MPV 9.7 fL (8.0-11.0); Monocytes % 8.4; Neutrophils % 75.5; Nucleated RBC 0 %; Platelet Count 312 10^3/uL (130-400); RBC 4.94 10^6/uL (4.36-5.78); RDW 12.5 % (11.8-14.1); RDW-SD 41.3 fL; WBC 6.52 10^3/uL (4.4-10.8)
[2021-01-03 14:25] LABS: ALT 17 U/L (16-63); AST 15 U/L (15-37); Albumin 3.6 g/dL (3.4-5.0); Alkaline Phosphatase 71 U/L (46-116); Anion Gap 9.6 mmol/L (3-11); BUN 21 mg/dL (7-18); Bilirubin, Total 0.4 mg/dL (0.2-1.0); CO2 26.4 mmol/L (21.0-32.0); CREATININE 1.1 mg/dL (0.70-1.30); Calcium 8.8 mg/dL (8.5-10.1); Chloride 105 mmol/L (98-107); Glucose 96 mg/dL (74-106); Potassium 4.4 mmol/L (3.5-5.1); Sodium 141 mmol/L (136-145); Total Protein 6.9 g/dL (6.4-8.2)
[2021-01-03 22:36] LABS: PSA, Diagnostic 12.2 ng/mL (0.0-6.5)
[2021-01-06 14:32] LABS: Testosterone, Total 20 ng/dL (240-950)
== END 2021-01-03 13:43 | disposition home or self-care (01) ==
LOC: LBN 13:42
PROVIDERS: PCP Internal Medicine; Visit Provider Internal Medicine
DX: C61 Malignant neoplasm of prostate (principal)
CPT/HCPCS: 80053; 84403; 84153; 85025

== ENCOUNTER 2021-01-06 04:33 | Outpatient (CLI) | payer BC, SELFPAY ==
--- NOTE | 2021-01-06 | DI.RAD_ITS ---
Exam(s) XR SHOULDER RT COMPLETE 2+V EXAM: XR SHOULDER RT COMPLETE 2+V CLINICAL HISTORY: RT SHOULDER PAIN, M25.511. TECHNIQUE: 2D digital imaging was performed. COMPARISON: No exams were available for comparison FINDINGS: BONES: No acute fracture is present. No bony destructive lesion is seen. JOINTS: No dislocation present. There are mild hypertrophic changes seen at the acromioclavicular an d glenohumeral joints. There is spurring at the undersurface of the acromion. SOFT TISSUE: Normal. IMPRESSION: [id number] degenerative changes of the glenohumeral and acromioclavicular joints. DATA REPOSITORY: RADIATION DOSE DELIVERED:
== END 2021-01-06 04:53 ==
PROVIDERS: PCP Internal Medicine; Visit Provider Internal Medicine
DX: M19.011 Primary osteoarthritis, right shoulder (principal)
CPT/HCPCS: 73030

== ENCOUNTER 2021-01-25 15:42 | Outpatient (REF) | payer BC, SELFPAY ==
[2021-01-25 18:33] LABS: Abs Immature Grans 0.01 10^3/uL (0.0-0.06); Absolute Basophil Count 0.02 10^3/uL (0.0-0.2); Absolute Eosinophil Count 0.16 10^3/uL (0.0-0.7); Absolute Lymphocyte Count 1.17 10^3/uL (1.2-3.4); Absolute Monocyte Count 0.44 10^3/uL (0.1-0.8); Absolute Neutrophil Count 2.96 10^3/uL (1.2-6.7); Basophils % 0.4; Eosinophils % 3.4; HCT 43.4 % (40.0-50.0); HGB 14.1 g/dL (13.5-17.5); Immature Grans % 0.2; Lymphocytes % 24.6; MCH 29.4 pg (27.0-33.0); MCHC 32.5 % (32.0-36.0); MCV 90.4 fL (80-95); MPV 10.3 fL (8.0-11.0); Monocytes % 9.2; Neutrophils % 62.2; Nucleated RBC 0 %; Platelet Count 241 10^3/uL (130-400); RDW 12.6 % (11.8-14.1); RDW-SD 42.3 fL; WBC 4.76 10^3/uL (4.4-10.8)
[2021-01-25 18:38] LABS: ALT 21 U/L (16-63); AST 12 U/L (15-37); Albumin 3.4 g/dL (3.4-5.0); Alkaline Phosphatase 70 U/L (46-116); Anion Gap 9.9 mmol/L (3-11); BUN 19 mg/dL (7-18); Bilirubin, Total 0.3 mg/dL (0.2-1.0); CO2 26.1 mmol/L (21.0-32.0); CREATININE 1.2 mg/dL (0.70-1.30); Calcium 8.8 mg/dL (8.5-10.1); Chloride 106 mmol/L (98-107); Estimated GFR 59.86 (mL/min/1.73m2); Glucose 95 mg/dL (74-106); Potassium 4.1 mmol/L (3.5-5.1); Sodium 142 mmol/L (136-145); Total Protein 6.5 g/dL (6.4-8.2)
[2021-01-26 17:42] LABS: PSA, Diagnostic 3.1 ng/mL (0.0-6.5)
[2021-01-29 22:13] LABS: Testosterone, Total <7.0 ng/dL (240-950)
== END 2021-01-25 15:43 | disposition home or self-care (01) ==
LOC: LBN 15:42
PROVIDERS: PCP Internal Medicine; Visit Provider Internal Medicine
DX: C61 Malignant neoplasm of prostate (principal)
CPT/HCPCS: 80053; 84403; 84153; 85025

== ENCOUNTER 2021-05-25 02:20 | Outpatient (CLI) | payer BC, SELFPAY | END 2021-05-25 02:21 | disposition home or self-care (01) | LOC: LBO 02:21 | PROVIDERS: PCP Internal Medicine; Visit Provider Radiology Radiation Oncology | DX: C61 Malignant neoplasm of prostate (principal) | CPT/HCPCS: 36415; 84153 ==

== ENCOUNTER 2021-11-09 03:05 | Outpatient (CLI) | payer BC, SELFPAY ==
[2021-11-10 16:18] LABS: PSA, Ultrasensitive 0.05 ng/mL (<= 6.5)
== END 2021-11-09 03:06 | disposition home or self-care (01) ==
LOC: LBO 03:05
PROVIDERS: PCP Internal Medicine; Visit Provider Radiology Radiation Oncology
DX: C61 Malignant neoplasm of prostate (principal)
CPT/HCPCS: 36415; 84153

== ENCOUNTER 2021-12-15 14:08 | Emergency (ER) | payer BC, SELFPAY ==
[2021-12-15] VITALS (18 sets, daily range): BP systolic 128–149; BP diastolic 57–80; PULSE 50–66; RESP 14–24; TEMP 36.6; O2SAT 94–99
--- NOTE | 2021-12-15 14:00 | RT.EKG_ITS ---
APPROVED REPORT Exam: Resting ECG Reason for Exam: CHEST PAIN Patient Location: E HR:59 bpm ECG Measurements Heart Rate 59 AXIS IA 177 P 70 QRSd 92 QRS 44 QT 425 T 33 QTc 422 Conclusion Sinus bradycardia...rate< 60 Probable left atrial enlargement...P >50mS, <-0.10mV V1
--- NOTE | 2021-12-15 14:45 | DI.CT_ITS ---
Exam(s) CT CHEST PE CTA EXAM: CT CHEST PE CTA CLINICAL HISTORY: chest pain left, prostate ca stage 4. TECHNIQUE: Imaging Protocol: Axial CT angiography was performed with multi-slice acquisition and mu lti-planar reconstructions as well as axial, coronal and sagittal MIP reconstructions. CONTRAST MATERIAL: Intravenous: Omnipaque 350 Contrast volume:100 ml COMPARISON: CT RENAL COLIC WO CONTRAST from 10/01/2016 CR,XR XR PORTABLE CHEST AP POST LINE from 07/14/2019 CR XR PORTABLE CHEST AP from 07/15/2019 FINDINGS: Pulmonary Arteries: No evidence of filling defect to suggest pulmonary emboli. Tracheobronchial tree: Patent where visualized. Mediastinum and Jessy: No dominant adenopathy or fluid collection. Pulmonary parenchyma: Scarring left lateral lung base. Dependent changes. No consolidation or domin ant measurable mass. Pleura: No effusion or pneumothorax. Heart: The heart is mildly dilated. coronary artery calcifications are seen. Tissues: Mild bilateral gynecomastia. Aorta: Thoracic aorta non-dilated. No aneurysm. No dissection. Minimal atherosclerotic changes. Upper abdomen: Unremarkable. Bones: Unremarkable for age.No lytic or blastic lesions. No acute spine or rib fractures. IMPRESSION: No evidence of pulmonary embolism or other acute abnormality.. RADIATION DOSE DELIVERED: 297.71mGy.cm Total DLP DATA REPOSITORY: All CT scans at this facility are submitted to the National Radiology Data Registry (NRDR) Dose Index Registry (DIR) with the [employer] (ACR). RADIATION OPTIMIZATION: All CT scans at this facility use at least one of these dose optimization te chniques: automated exposure control; mA and/or kV adjustment per patient size (includes targeted exa ms where dose is matched to clinical indication); or iterative reconstruction.
[2021-12-15 14:46] LABS: Source Nasal/Nares
--- NOTE | 2021-12-15 15:05 | ED.GENADUL_ITS ---
Discharge Plan Disposition Patient Disposition: STILL A PATIENT Discharge Details Chief Complaint: Chest Pain Primary Care Provider: Alondra Flores ED Provider: Teddy Cole Home Meds and New Rx's Prescriptions: No Action atorvastatin 20 mg tablet Label Comments: TAKE 1 TABLET BY MOUTH AT BEDTIME prednisone 5 mg tablet tamsulosin 0.4 mg capsule PO Label Comments: TAKE 1 CAPSULE BY MOUTH AT BEDTIME tadalafil 5 mg tablet cholecalciferol (vitamin D3) 25 mcg (1,000 unit) tablet Label Comments: TAKE 1 TABLET BY MOUTH EVERY DAY abiraterone 250 mg tablet PO ondansetron HCl 4 mg Tablet 4 mg PO Q6H PRN propranolol 20 mg Tablet 20 mg PO DAILY PRN (Reason: Tremor(S)) acetaminophen [Tylenol] 325 mg Tablet 650 mg PO Q4H PRN PRNQty: 30 0RF sucralfate 1 gram Tablet 1 g PO AC & HS Qty: 120 0RF docusate sodium [Colace] 100 mg Capsule 100 mg PO TID PRN PRNQty: 30 0RF Protonix [address] for susp in packet 40 mg PO BID Qty: 60 0RF Medical Decision Making 1513 -- 71-year-old male with history of stage IV prostate cancer on chemotherapy, hyperlipidemia, significant family history for coronary artery disease, here with intermittent left chest discomfort since this morning. Patient did have recent long distance travel and pain is worse at times with deep inspiration. Patient is saturating well in no respiratory distress. Consider acute life-threatening pulmonary embolism. Plan to obtain CT imaging of the chest. Consider ACS. Screening EKG was reviewed and interpreted by me: Please see report, sinus bradycardia 59 bpm with probable left atrial enlargement. 1545 --Initial labs reviewed and normal creatinine. Plan to proceed to CT. Lab Data Lab results reviewed: Yes I reviewed the patient's lab results. Labs: Laboratory Tests Range/Units 12/15/21 12/15/21 12/15/21 14:35 14:58 14:58 WBC (4.4-10.8) 10^3/uL 4.49 RBC (4.36-5.78) 10^6/uL 4.14 L Hgb (13.5-17.5) g/dL 13.1 L Hct (40.0-50.0) % 37.8 L MCV (80-95) fL 91 MCH (27.0-33.0) pg 31.6 MCHC (32.0-36.0) % 34.7 RDW (11.8-14.1) % 12.5 Plt Count (130-400) 10^3/uL 185 MPV (8.0-11.0) fL 9.2 Immature Gran % 0.4 Neutrophils % 83.4 Lymphocytes % 7.8 Monocytes % 7.3 Eosinophils % 0.9 Basophils % 0.2 Nucleated RBC % (0.0-0.3) % 0.0 Absolute Neutrophils (1.2-6.7) 10^3/uL 3.74 Absolute Lymphocytes (1.2-3.4) 10^3/uL 0.35 L Absolute Monocytes (0.1-0.8) 10^3/uL 0.33 Absolute Eosinophils (0.0-0.7) 10^3/uL 0.04 Absolute Basophils (0.0-0.2) 10^3/uL 0.01 Sodium (136-145) mmol/L 141 Potassium (3.5-5.1) mmol/L 4.1 Chloride (98-107) mmol/L 106 Carbon Dioxide (21.0-32.0) mmol/L 26.9 Anion Gap (3-11) mmol/L 8.1 BUN (7-18) mg/dL 26 H Creatinine (0.70-1.30) mg/dL 1.0 Estimated GFR/1.73 m2 (mL/min/1.73m2) >= 60.00 Glucose (74-106) mg/dL 125 H Calcium (8.5-10.1) mg/dL 8.6 Total Bilirubin (0.2-1.0) mg/dL 0.4 AST (15-37) U/L 20 ALT (16-63) U/L 32 Alkaline Phosphatase (46-116) U/L 85 Troponin I (<or=60) ng/L < 50 Total Protein (6.4-8.2) g/dL 6.5 Albumin (3.4-5.0) g/dL 3.3 L COVID-19 Source Nasal/Nares HPI General Mode of arrival: ambulatory . Date/Time Provider Initiated Documentation: 12/15/21 14:27 . Limitations to Documentation: no limitations . Information obtained by: patient . HPI Narrative: 71-year-old male with history of stage IV prostate cancer chronic kidney disease, hyperlipidemia and significant family history of heart disease, here with chief complaint of chest discomfort. Patient notes he woke up this morning with pain in his left scapula. Patient then later noticed pain in his left upper anterior chest. Pain worse at times with deep inspiration. Pain also seems positional at times. Patient denies associated shortness of breath. Patient suspects pain is musculoskeletal would not of sought care if not for prompting of his family. He has had recent long distance travel and flight to [place] returning last week. Related Data Home Medications Medication Instructions Recorded Confirmed ondansetron HCl 4 mg tablet 4 mg PO Q6H PRN 07/14/19 07/14/19 propranolol 20 mg tablet 20 mg PO DAILY PRN Tremor(S) 07/14/19 07/14/19 acetaminophen 325 mg tablet 650 mg PO Q4H PRN PRN #30 tabs 07/17/19 (Tylenol) docusate sodium 100 mg capsule 100 mg PO TID PRN PRN #30 caps 07/17/19 (Colace) pantoprazole 40 mg granules 40 mg PO BID #60 ea 07/17/19 delayed-release for susp in packet (Protonix) sucralfate 1 gram tablet 1 g PO AC & HS #120 tabs 07/17/19 abiraterone 250 mg tablet tab PO 12/15/21 12/15/21 atorvastatin 20 mg tablet tab 12/15/21 12/15/21 cholecalciferol (vitamin D3) 25 tab 12/15/21 12/15/21 mcg (1,000 unit) tablet prednisone 5 mg tablet tab 12/15/21 12/15/21 tadalafil 5 mg tablet tab 12/15/21 12/15/21 tamsulosin 0.4 mg capsule cap PO 12/15/21 12/15/21 Previous Rx's Medication Instructions Recorded acetaminophen 325 mg tablet 650 mg PO Q4H PRN PRN #30 tabs 07/17/19 (Tylenol) docusate sodium 100 mg capsule 100 mg PO TID PRN PRN #30 caps 07/17/19 (Colace) pantoprazole 40 mg granules 40 mg PO BID #60 ea 07/17/19 delayed-release for susp in packet (Protonix) sucralfate 1 gram tablet 1 g PO AC & HS #120 tabs 07/17/19 Allergies Allergy/AdvReac Type Severity Reaction Status Date / Time No Known Allergies Allergy Unverified 07/14/19 22:18 General Stated Complaint: Chest Pain MEERA: 2 Review of Systems All systems reviewed & are unremarkable except as noted in HPI and below Constitutional Constitutional: Denies fever(s) Cardiovascular Cardiovascular: Reports chest pain and Denies dyspnea Respiratory Respiratory: Denies dyspnea PFSH All Active Problems Esophagitis (Acute) Gastritis (Acute) Symptomatic anemia (Acute) Discharge planning issues (Acute) DVT prophylaxis (Acute) Anemia due to acute blood loss (Acute) Estrada esophagus (Acute) Calculus of distal right ureter (Acute) UGIB (upper gastrointestinal bleed) (Acute) Tremor (Chronic) Hx of abdominal surgery (Chronic) for intussusception S/P orchiectomy (Chronic) Medical History CKD (chronic kidney disease) Social History Smoking/Tobacco Use Status: Never Smoking risk assessment performed?: Yes Alcohol Intake: current Alcohol Intake frequency: a few times a month Substance use type: does not use Do you feel safe at home: Yes Do you feel safe in your relationship?: Yes Exam Const General: cooperative and no acute distress HENMT Mouth: moist mucous membranes Eyes Conjunctivae: normal conjunctivae Sclera: normal sclerae Neck Neck: trachea midline and supple Chest Chest: no tenderness Resp Auscultation: clear to auscultation bilaterally, no rales, no rhonchi and no wheezes Cardio Rate: regular rate and not tachycardic Rhythm: regular rhythm Heart Sounds: murmur systolic II/ and at the right sternal border GI Palpation: soft, not firm, no guarding, no masses, not rigid and nontender Skin General skin exam: no rashes or lesions noted Neuro General: patient alert, patient awake and tone normal Extrem General: edema Laterality: bilateral (1+ up shins) Psych Appearance: grossly normal Mental Status: mental status grossly normal Speech and Movement: speech and movement normal Course Vital Signs Vital signs: Vital Signs Pulse 63 12/15/21 14:11 Respiratory Rate 18 12/15/21 14:11 Pulse Oximetry 96 12/15/21 14:11 Pulse 63 12/15/21 14:11 Respiratory Rate 18 12/15/21 14:11 Respiratory Effort Non-Labored 12/15/21 14:30 Blood Pressure Position Supine 12/15/21 14:11 Pulse Oximetry 96 12/15/21 14:11 Oxygen Delivery Method Room Air 12/15/21 14:11 Oxygen Flow Rate 0 12/15/21 14:11 Pain Level 2 12/15/21 14:11 Lab/Test Results Lab/Test Results: Laboratory Tests Range/Units 12/15/21 14:35 COVID-19 Source Nasal/Nares
[2021-12-15 15:07] LABS: Abs Immature Grans 0.02 10^3/uL (0.0-0.06); Absolute Basophil Count 0.01 10^3/uL (0.0-0.2); Absolute Eosinophil Count 0.04 10^3/uL (0.0-0.7); Absolute Lymphocyte Count 0.35 10^3/uL (1.2-3.4); Absolute Monocyte Count 0.33 10^3/uL (0.1-0.8); Absolute Neutrophil Count 3.74 10^3/uL (1.2-6.7); Basophils % 0.2; Eosinophils % 0.9; HCT 37.8 % (40.0-50.0); HGB 13.1 g/dL (13.5-17.5); Immature Grans % 0.4; Lymphocytes % 7.8; MCH 31.6 pg (27.0-33.0); MCHC 34.7 % (32.0-36.0); MCV 91 fL (80-95); MPV 9.2 fL (8.0-11.0); Monocytes % 7.3; Neutrophils % 83.4; Platelet Count 185 10^3/uL (130-400); RBC 4.14 10^6/uL (4.36-5.78); RDW 12.5 % (11.8-14.1); RDW-SD 41.9 fL; WBC 4.49 10^3/uL (4.4-10.8)
[2021-12-15 15:25] LABS: ALT 32 U/L (16-63); AST 20 U/L (15-37); Albumin 3.3 g/dL (3.4-5.0); Alkaline Phosphatase 85 U/L (46-116); Anion Gap 8.1 mmol/L (3-11); BUN 26 mg/dL (7-18); Bilirubin, Total 0.4 mg/dL (0.2-1.0); CO2 26.9 mmol/L (21.0-32.0); Calcium 8.6 mg/dL (8.5-10.1); Chloride 106 mmol/L (98-107); Glucose 125 mg/dL (74-106); Potassium 4.1 mmol/L (3.5-5.1); Sodium 141 mmol/L (136-145); Total Protein 6.5 g/dL (6.4-8.2); Troponin I < 50 ng/L (<or=60)
[2021-12-15] MEDS: Omnipaque 350 MG/ML 100 ML BTL IJ (16:31)
[2021-12-15 17:17] LABS: COVID-19 PCR Negative (Negative)
[2021-12-15 18:13] LABS: Troponin I < 50 ng/L (<or=60)
--- NOTE | 2021-12-15 18:30 | RT.EKG_ITS ---
APPROVED REPORT Exam: Resting ECG Reason for Exam: bradycardia Patient Location: E HR:43 bpm ECG Measurements Heart Rate 43 AXIS KS 190 P 70 QRSd 90 QRS 43 QT 474 T 45 QTc 399 Conclusion Bradycardia with irregular rate...V-rate 35- 55, mean < 60 Consider left ventricular hypertrophy...(S V1+R V5/V6) >3.50mV sinus bradycardia, normal intervals, non ischemic
--- NOTE | 2021-12-15 18:34 | W.EDPROG ---
Date of service: 12/15/21 Time of Service: 18:35 Medical Decision Making Resting comfortably chest pain-free. Sinus bradycardia on the monitor. Labs and imaging unremarkable. Given home care instructions and strict return precautions. Patient to follow-up with cardiology next week. Discharge Plan Disposition Patient Disposition: HOME Condition: Improving Discharge Details Clinical Impression: Chest pain Primary Care Provider: Alondra Flores ED Provider: Beto Heck Home Meds and New Rx's Prescriptions: No Action atorvastatin 20 mg tablet Label Comments: TAKE 1 TABLET BY MOUTH AT BEDTIME prednisone 5 mg tablet tamsulosin 0.4 mg capsule PO Label Comments: TAKE 1 CAPSULE BY MOUTH AT BEDTIME tadalafil 5 mg tablet cholecalciferol (vitamin D3) 25 mcg (1,000 unit) tablet Label Comments: TAKE 1 TABLET BY MOUTH EVERY DAY abiraterone 250 mg tablet PO ondansetron HCl 4 mg Tablet 4 mg PO Q6H PRN propranolol 20 mg Tablet 20 mg PO DAILY PRN (Reason: Tremor(S)) acetaminophen [Tylenol] 325 mg Tablet 650 mg PO Q4H PRN PRNQty: 30 0RF sucralfate 1 gram Tablet 1 g PO AC & HS Qty: 120 0RF docusate sodium [Colace] 100 mg Capsule 100 mg PO TID PRN PRNQty: 30 0RF Protonix [address] for susp in packet 40 mg PO BID Qty: 60 0RF Discharge Instructions Instructions: Chest Pain (ED) Additional Instructions: Please return to the emergency department if you develop worsening chest pain shortness of breath feel like you are to pass out fatigue nausea sweating or other abnormal symptoms. Please follow-up with cardiology next week.
--- NOTE | 2021-12-15 18:37 | NUR.NOTE ---
Nursing Note: PT INFO FAXED TO CARDIOLOGY TO BE SEEN EARLY NEXT WEEK FOR CHEST PAIN FOLLOW UP. SKYLAR, ED
--- NOTE | 2021-12-15 18:52 | NUR.NOTE ---
Nursing Note: Upon going to eval patient for discharge - HR noted to drop down to 38 sustained. Pt asymptomatic. Repeat ECG done given to Dr. Loya.
== END 2021-12-15 19:20 | disposition home or self-care (01) ==
PROVIDERS: Student in an Organized Health Care Education/Training Program; Emergency Provider Emergency Medicine; PCP Internal Medicine
DX: R07.9 Chest pain, unspecified (principal); M25.512 Pain in left shoulder; C61 Malignant neoplasm of prostate; R00.1 Bradycardia, unspecified; Z79.899 Other long term (current) drug therapy
CPT/HCPCS: 71275; 80053; 87635; 93005; 99284; 99285; 84484; 85025; 93010; J3490

== ENCOUNTER 2021-12-18 18:37 | Emergency (ER) | payer BC, SELFPAY ==
[2021-12-18] VITALS (33 sets, daily range): BP systolic 127–142; BP diastolic 63–72; PULSE 49–72; RESP 11–24; TEMP 36.8; O2SAT 93–96
--- NOTE | 2021-12-18 18:30 | RT.EKG_ITS ---
APPROVED REPORT Exam: Resting ECG Reason for Exam: chest pain Patient Location: E HR:50 bpm ECG Measurements Heart Rate 50 AXIS LA 171 P 33 QRSd 89 QRS 18 QT 451 T 22 QTc 412 Conclusion Sinus bradycardia...rate< 60 Consider left ventricular hypertrophy...(S V1+R V5/V6) >3.50mV
--- NOTE | 2021-12-18 19:00 | DI.RAD_ITS ---
Exam(s) XR PORTABLE CHEST AP EXAM: XR PORTABLE CHEST AP CLINICAL HISTORY: chest pain TECHNIQUE: 2D digital imaging was performed of the chest. One image was obtained. An AP view was ob tained. COMPARISON: CR XR PORTABLE CHEST AP from 07/15/2019 FINDINGS: MEDIASTINUM: Normal. HEART: Normal. PULMONARY VASCULATURE: Normal. LUNGS: Clear. PLEURAL SPACE: No pleural effusion or pneumothorax. BONE:Within normal limits for the patient's age. OTHER FINDINGS:Normal. IMPRESSION: No acute pulmonary findings. DATA REPOSITORY: RADIATION DOSE DELIVERED:
[2021-12-18 19:21] LABS: Abs Immature Grans 0.01 10^3/uL (0.0-0.06); Absolute Basophil Count 0.02 10^3/uL (0.0-0.2); Absolute Eosinophil Count 0.07 10^3/uL (0.0-0.7); Absolute Lymphocyte Count 0.58 10^3/uL (1.2-3.4); Absolute Monocyte Count 0.53 10^3/uL (0.1-0.8); Absolute Neutrophil Count 2.96 10^3/uL (1.2-6.7); Basophils % 0.5; Eosinophils % 1.7; HCT 37.8 % (40.0-50.0); HGB 13.1 g/dL (13.5-17.5); Immature Grans % 0.2; Lymphocytes % 13.9; MCH 31.4 pg (27.0-33.0); MCHC 34.7 % (32.0-36.0); MCV 91 fL (80-95); MPV 9.4 fL (8.0-11.0); Monocytes % 12.7; Platelet Count 200 10^3/uL (130-400); RBC 4.17 10^6/uL (4.36-5.78); RDW 12.7 % (11.8-14.1); RDW-SD 42.2 fL; WBC 4.17 10^3/uL (4.4-10.8)
--- NOTE | 2021-12-18 19:26 | ED.GENADUL_ITS ---
Discharge Plan Disposition Patient Disposition: HOME Condition: Stable Discharge Details Clinical Impression: Chest pain, Bradycardia Primary Care Provider: Alondra Flores ED Provider: Teddy Cole Home Meds and New Rx's Prescriptions: Continued atorvastatin 20 mg tablet 20 tab PO DAILY Label Comments: TAKE 1 TABLET BY MOUTH AT BEDTIME prednisone 5 mg tablet 5 tab PO DAILY tamsulosin 0.4 mg capsule 1 cap PO DAILY Label Comments: TAKE 1 CAPSULE BY MOUTH AT BEDTIME tadalafil 5 mg tablet cholecalciferol (vitamin D3) 25 mcg (1,000 unit) tablet 1 tab PO DAILY Label Comments: TAKE 1 TABLET BY MOUTH EVERY DAY acetaminophen [Tylenol] 325 mg Tablet 650 mg PO Q4H PRN PRNQty: 30 0RF abiraterone 250 mg tablet 1,000 mg PO DAILY Lupron Depot (3 month) 11.25 mg syringe kit IM Label Comments: every 3 mos, per Onc Discharge Instructions Additional Instructions: Please have stress test performed as soon as possible. Please contact your primary care physician to arrange follow-up. Call tomorrow. Return to the ER immediately for any worsening or new concerning symptoms. Referrals: Alondra Flores [Primary Care Provider] - Discharge Data Discharge Date/Time-TO BE ENTERED AT DEPARTURE: 12/18/21 22:50 Medical Decision Making 2099 -- 71-year-old male with history of stage IV prostate cancer on chemotherapy, hyperlipidemia, significant family history for coronary artery disease, here with intermittent left chest discomfort since 12/15/21.? Patient is hemodynamically stable. Patient is saturating well in no respiratory distress. Patient was seen here on 12/15/2021 for chest discomfort and had negative CT of the chest and nondiagnostic EKGs with 2 negative troponins. He was discharged to follow-up for outpatient stress test which has not yet been performed. Consider ACS versus unstable angina.? Screening EKG was reviewed and interpreted by me: Please see report, sinus bradycardia 50 bpm. Initial troponin negative. Plan for admission for telemetry, serial troponins and further diagnostic testing. 2241 --patient was seen by Dr. Zelaya who was able to elicit pain with certain positions and feel strongly that this is musculoskeletal etiology and recommends discharge. Patient remained stable during prolonged ED observation today. I performed a delta troponin which was negative and unchanged from prior. Patient will be discharged to follow-up with his primary care physician. I have already asked care management to help arrange timely outpatient stress test earlier today. All results were discussed with the patient and his . They were in agreement with treatment plan. Lab Data Lab results reviewed: Yes I reviewed the patient's lab results. Labs: Laboratory Tests Range/Units 12/18/21 12/18/21 12/18/21 19:10 19:10 19:10 WBC (4.4-10.8) 10^3/uL 4.17 L RBC (4.36-5.78) 10^6/uL 4.17 L Hgb (13.5-17.5) g/dL 13.1 L Hct (40.0-50.0) % 37.8 L MCV (80-95) fL 91 MCH (27.0-33.0) pg 31.4 MCHC (32.0-36.0) % 34.7 RDW (11.8-14.1) % 12.7 Plt Count (130-400) 10^3/uL 200 MPV (8.0-11.0) fL 9.4 Immature Gran % 0.2 Neutrophils % 71.0 Lymphocytes % 13.9 Monocytes % 12.7 Eosinophils % 1.7 Basophils % 0.5 Nucleated RBC % (0.0-0.3) % 0.0 Absolute Neutrophils (1.2-6.7) 10^3/uL 2.96 Absolute Lymphocytes (1.2-3.4) 10^3/uL 0.58 L Absolute Monocytes (0.1-0.8) 10^3/uL 0.53 Absolute Eosinophils (0.0-0.7) 10^3/uL 0.07 Absolute Basophils (0.0-0.2) 10^3/uL 0.02 APTT (21.0-27.5) sec 23.7 Sodium (136-145) mmol/L 140 Potassium (3.5-5.1) mmol/L 4.2 Chloride (98-107) mmol/L 106 Carbon Dioxide (21.0-32.0) mmol/L 26.5 Anion Gap (3-11) mmol/L 7.5 BUN (7-18) mg/dL 20 H Creatinine (0.70-1.30) mg/dL 1.0 Estimated GFR/1.73 m2 (mL/min/1.73m2) >= 60.00 Glucose (74-106) mg/dL 91 Calcium (8.5-10.1) mg/dL 8.9 Magnesium (1.8-2.4) mg/dL 2.2 Total Bilirubin (0.2-1.0) mg/dL 0.4 AST (15-37) U/L 18 ALT (16-63) U/L 33 Alkaline Phosphatase (46-116) U/L 80 Troponin I (<or=60) ng/L < 50 Total Protein (6.4-8.2) g/dL 6.6 Albumin (3.4-5.0) g/dL 3.5 COVID-19 Source Range/Units 12/18/21 19:15 WBC (4.4-10.8) 10^3/uL RBC (4.36-5.78) 10^6/uL Hgb (13.5-17.5) g/dL Hct (40.0-50.0) % MCV (80-95) fL MCH (27.0-33.0) pg MCHC (32.0-36.0) % RDW (11.8-14.1) % Plt Count (130-400) 10^3/uL MPV (8.0-11.0) fL Immature Gran % Neutrophils % Lymphocytes % Monocytes % Eosinophils % Basophils % Nucleated RBC % (0.0-0.3) % Absolute Neutrophils (1.2-6.7) 10^3/uL Absolute Lymphocytes (1.2-3.4) 10^3/uL Absolute Monocytes (0.1-0.8) 10^3/uL Absolute Eosinophils (0.0-0.7) 10^3/uL Absolute Basophils (0.0-0.2) 10^3/uL APTT (21.0-27.5) sec Sodium (136-145) mmol/L Potassium (3.5-5.1) mmol/L Chloride (98-107) mmol/L Carbon Dioxide (21.0-32.0) mmol/L Anion Gap (3-11) mmol/L BUN (7-18) mg/dL Creatinine (0.70-1.30) mg/dL Estimated GFR/1.73 m2 (mL/min/1.73m2) Glucose (74-106) mg/dL Calcium (8.5-10.1) mg/dL Magnesium (1.8-2.4) mg/dL Total Bilirubin (0.2-1.0) mg/dL AST (15-37) U/L ALT (16-63) U/L Alkaline Phosphatase (46-116) U/L Troponin I (<or=60) ng/L Total Protein (6.4-8.2) g/dL Albumin (3.4-5.0) g/dL COVID-19 Source Nasal/Nares HPI General Mode of arrival: ambulatory . Date/Time Provider Initiated Documentation: 12/18/21 18:38 . Limitations to Documentation: no limitations . Information obtained by: patient and family . HPI Narrative: 71-year-old male with history of hyperlipidemia, significant family history for coronary artery disease, stage IV prostate cancer on chemotherapy, here with chief complaint of chest discomfort. Patient was seen here in the emergency department on 12/15/2021 and had work-up for chest discomfort including [address] chest. Patient was discharged with plan for outpatient stress test which has not yet been performed. He notes that since discharge he has had intermittent chest discomfort. Today he told his significant other that pain felt like a fist around his heart. This was concerning and she prompted him to come to the emergency department even though he did not wish to pursue work- up. He now notes chest pain is sore and tight. Pain is mild rated 2/10. No associated shortness of breath. Related Data Home Medications Medication Instructions Recorded Confirmed acetaminophen 325 mg tablet 650 mg PO Q4H PRN PRN #30 tabs 07/17/19 12/18/21 (Tylenol) atorvastatin 20 mg tablet 20 tab PO DAILY 12/15/21 12/18/21 cholecalciferol (vitamin D3) 25 1 tab PO DAILY 12/15/21 12/18/21 mcg (1,000 unit) tablet prednisone 5 mg tablet 5 tab PO DAILY 12/15/21 12/18/21 tadalafil 5 mg tablet tab 12/15/21 12/15/21 tamsulosin 0.4 mg capsule 1 cap PO DAILY 12/15/21 12/18/21 abiraterone 250 mg tablet 1,000 mg PO DAILY 12/18/21 12/18/21 leuprolide (3 month) 11.25 mg (3 syrg IM 12/18/21 month) intramuscular syringe kit (Lupron Depot) Previous Rx's Medication Instructions Recorded acetaminophen 325 mg tablet 650 mg PO Q4H PRN PRN #30 tabs 07/17/19 (Tylenol) Allergies Allergy/AdvReac Type Severity Reaction Status Date / Time No Known Allergies Allergy Unverified 12/18/21 18:49 General Stated Complaint: Chest Pain MEERA: 2 Review of Systems All systems reviewed & are unremarkable except as noted in HPI and below Constitutional Constitutional: Denies fever(s) Cardiovascular Cardiovascular: Reports as per HPI Respiratory Respiratory: Reports as per HPI PFSH All Active Problems Chest pain (Acute) Bradycardia (Acute) Chest pain (Acute) Esophagitis (Acute) Gastritis (Acute) Symptomatic anemia (Acute) Discharge planning issues (Acute) DVT prophylaxis (Acute) Anemia due to acute blood loss (Acute) Estrada esophagus (Acute) Calculus of distal right ureter (Acute) UGIB (upper gastrointestinal bleed) (Acute) Tremor (Chronic) Hx of abdominal surgery (Chronic) for intussusception S/P orchiectomy (Chronic) Medical History (Updated 12/20/21 @ 10:00 by Raina Paris) CKD (chronic kidney disease) Erectile dysfunction Fatigue Lower urinary tract symptoms (LUTS) Prostate cancer Social History Smoking/Tobacco Use Status: Never Smoking risk assessment performed?: Yes Alcohol Intake: current Alcohol Intake frequency: a few times a week Substance use type: does not use Do you feel safe at home: Yes Do you feel safe in your relationship?: Yes Exam Const General: cooperative and no acute distress HENMT Mouth: moist mucous membranes Eyes Conjunctivae: normal conjunctivae Sclera: normal sclerae Neck Neck: trachea midline and supple Resp Auscultation: clear to auscultation bilaterally, no rales, no rhonchi and no wheezes Cardio Rate: regular rate and not tachycardic Rhythm: regular rhythm GI Palpation: soft, not firm, no guarding, no masses, not rigid and nontender Skin General skin exam: no rashes or lesions noted Neuro General: patient alert, patient awake and tone normal Extrem General: no calf tenderness and no edema Psych Appearance: grossly normal Mental Status: mental status grossly normal Speech and Movement: speech and movement normal Course Vital Signs Vital signs: Vital Signs Temperature 36.8 C 12/18/21 18:42 Pulse 51 L 12/18/21 18:42 Respiratory Rate 18 12/18/21 18:42 Blood Pressure 141/70 H 12/18/21 18:42 Pulse Oximetry 96 12/18/21 18:42 Temperature 36.8 C 12/18/21 18:42 Temperature Source Skin 12/18/21 18:42 Pulse 51 L 12/18/21 18:42 Respiratory Rate 18 12/18/21 18:42 Respiratory Effort 12/18/21 18:42 Blood Pressure 141/70 H 12/18/21 18:42 Blood Pressure Position Supine 12/18/21 18:42 Pulse Oximetry 96 12/18/21 18:42 Oxygen Delivery Method Room Air 12/18/21 18:42 Oxygen Flow Rate 0 12/18/21 18:42 Pain Level 1 12/18/21 18:42 Lab/Test Results Lab/Test Results: Laboratory Tests Range/Units 12/18/21 12/18/21 19:10 19:15 WBC (4.4-10.8) 10^3/uL 4.17 L RBC (4.36-5.78) 10^6/uL 4.17 L Hgb (13.5-17.5) g/dL 13.1 L Hct (40.0-50.0) % 37.8 L MCV (80-95) fL 91 MCH (27.0-33.0) pg 31.4 MCHC (32.0-36.0) % 34.7 RDW (11.8-14.1) % 12.7 Plt Count (130-400) 10^3/uL 200 MPV (8.0-11.0) fL 9.4 Immature Gran % 0.2 Neutrophils % 71.0 Lymphocytes % 13.9 Monocytes % 12.7 Eosinophils % 1.7 Basophils % 0.5 Nucleated RBC % (0.0-0.3) % 0.0 Absolute Neutrophils (1.2-6.7) 10^3/uL 2.96 Absolute Lymphocytes (1.2-3.4) 10^3/uL 0.58 L Absolute Monocytes (0.1-0.8) 10^3/uL 0.53 Absolute Eosinophils (0.0-0.7) 10^3/uL 0.07 Absolute Basophils (0.0-0.2) 10^3/uL 0.02 COVID-19 Source Nasal/Nares
[2021-12-18 19:34] LABS: PTT Activated 23.7 sec (21.0-27.5)
[2021-12-18 19:37] LABS: ALT 33 U/L (16-63); AST 18 U/L (15-37); Albumin 3.5 g/dL (3.4-5.0); Alkaline Phosphatase 80 U/L (46-116); Anion Gap 7.5 mmol/L (3-11); BUN 20 mg/dL (7-18); Bilirubin, Total 0.4 mg/dL (0.2-1.0); CO2 26.5 mmol/L (21.0-32.0); Calcium 8.9 mg/dL (8.5-10.1); Chloride 106 mmol/L (98-107); Glucose 91 mg/dL (74-106); Magnesium 2.2 mg/dL (1.8-2.4); Potassium 4.2 mmol/L (3.5-5.1); Sodium 140 mmol/L (136-145); Total Protein 6.6 g/dL (6.4-8.2); Troponin I < 50 ng/L (<or=60)
--- NOTE | 2021-12-18 20:33 | DI.VRAD_ITS ---
PROCEDURE INFORMATION: Exam: XR Chest Exam date and time: 12/18/2021 7:35 PM Age: 71 years old Clinical indication: Other: Chest pain TECHNIQUE: Imaging protocol: Radiologic exam of the chest. Views: 1 view. COMPARISON: CT CHEST PE CTA 12/15/2021 4:23 PM FINDINGS: Lungs: No pulmonary consolidation is seen. Pleural spaces: No pleural effusion or pneumothorax is demonstrated. Heart/Mediastinum: Heart size is normal. The mediastinal contours appear within the variation of normal. Bones/joints: Old left-sided rib fractures are noted. IMPRESSION: No active disease is seen in the chest. Dictated and Authenticated by: Suman Kraft MD. Ordering:JAMES Espinal MD
[2021-12-18 21:21] LABS: Source Nasal/Nares
--- NOTE | 2021-12-18 21:53 | W.MEDCONSULT ---
Date of service: 12/18/21 Time of Service: 21:54 Assessment and Plan Assessment and plan (1) Chest pain: Status: Acute Assessment and plan: I think this is clearly musculoskeletal. I think there is a very low likliehood of coronary insufficiency, if at all. I do not feel patient needs to be admitted, would advise f/u ETT as outpatient. I have reviewed my findings and recommendations with ER. History of Present Illness History of Present Illness Chief Complaint: CP Narrative: 71 male with h/o stage IV prostate cancer -- reports one week of fleeting pains, beginning in left scapula, but since in left upper chest. Pain lasts only seconds, and occurs only with certain twisting or bending motions, such as getting out of the car or lying down on the grass to play with his dog. Notably not exertional, and specifically reports no CP today with walking up a grade from his horse trailer back to the house. No SOB, nausea or diaphoresis. Patient was actually here 3 days ago with same symptoms, had negative work up and arrangements were made for stress test, which reportedly is to happen in the next 1-2 days (per ). Today has had negative CXR, normal EKG and negative troponin. I was asked to evaluate for possible admission. Review of Systems Narrative: per HPI PFSH All Active Problems Chest pain (Acute) Esophagitis (Acute) Gastritis (Acute) Symptomatic anemia (Acute) Discharge planning issues (Acute) DVT prophylaxis (Acute) Anemia due to acute blood loss (Acute) Estrada esophagus (Acute) Calculus of distal right ureter (Acute) UGIB (upper gastrointestinal bleed) (Acute) Tremor (Chronic) Hx of abdominal surgery (Chronic) for intussusception S/P orchiectomy (Chronic) Medical History CKD (chronic kidney disease) Social History Smoking/Tobacco Use Status: Never Smoking risk assessment performed?: Yes Alcohol Intake: current Alcohol Intake frequency: a few times a week Substance use type: does not use Do you feel safe at home: Yes Do you feel safe in your relationship?: Yes Exam Narrative Exam Narrative: 127/72, 62, 36.8, 19, 95% RA. HEENT atraumatic, neck supple, JVP approx 5-6 cm; lungs clear; heart RRR with 2/6 apical sys murmur; chest wall non-tender but able to reproduce symptoms by having patient twist to left and get up off stretcher; abdomen soft and NT; extremities w/o edema,pulses 2+/=; neuro Ox3, lucid, moves all 4s Results Last Vital Signs Temp 36.8 C 12/18/21 18:42 Pulse 51 L 12/18/21 19:46 Resp 19 12/18/21 20:50 BP 127/72 12/18/21 19:46 Pulse Ox 95 12/18/21 20:40 Labs Result diagrams: 12/18/21 19:10 12/18/21 19:10 Labs: Laboratory Results - last 24 hr 12/18/21 12/18/21 12/18/21 19:10 19:10 19:10 WBC 4.17 L RBC 4.17 L Hgb 13.1 L Hct 37.8 L MCV 91 MCH 31.4 MCHC 34.7 RDW 12.7 Plt Count 200 MPV 9.4 Immature Gran % 0.2 Neutrophils % 71.0 Lymphocytes % 13.9 Monocytes % 12.7 Eosinophils % 1.7 Basophils % 0.5 Nucleated RBC % 0.0 Absolute Neutrophils 2.96 Absolute Lymphocytes 0.58 L Absolute Monocytes 0.53 Absolute Eosinophils 0.07 Absolute Basophils 0.02 APTT 23.7 Sodium 140 Potassium 4.2 Chloride 106 Carbon Dioxide 26.5 Anion Gap 7.5 BUN 20 H Creatinine 1.0 Estimated GFR/1.73 m2 >= 60.00 Glucose 91 Calcium 8.9 Magnesium 2.2 Total Bilirubin 0.4 AST 18 ALT 33 Alkaline Phosphatase 80 Troponin I < 50 Total Protein 6.6 Albumin 3.5 COVID-19 Source SARS-CoV-2 (PCR) 12/18/21 12/18/21 19:15 21:20 WBC RBC Hgb Hct MCV MCH MCHC RDW Plt Count MPV Immature Gran % Neutrophils % Lymphocytes % Monocytes % Eosinophils % Basophils % Nucleated RBC % Absolute Neutrophils Absolute Lymphocytes Absolute Monocytes Absolute Eosinophils Absolute Basophils APTT Sodium Potassium Chloride Carbon Dioxide Anion Gap BUN Creatinine Estimated GFR/1.73 m2 Glucose Calcium Magnesium Total Bilirubin AST ALT Alkaline Phosphatase Troponin I Total Protein Albumin COVID-19 Source Cancelled Nasal/Nares SARS-CoV-2 (PCR) Cancelled
[2021-12-18 22:16] LABS: Troponin I < 50 ng/L (<or=60)
--- NOTE | 2021-12-18 22:47 | NUR.NOTE ---
Referral to Care Management to help set up Stress Test for patient gavin. Per Dr Stella Cole see previous order.Nursing Note:
[2021-12-18 23:02] LABS: COVID-19 PCR Negative (Negative)
[2021-12-18 23:09] LABS: TSH (W/Ref FT4) 2.79 uIU/mL (0.36-3.74)
== END 2021-12-18 22:50 | disposition home or self-care (01) ==
PROVIDERS: Emergency Provider Student in an Organized Health Care Education/Training Program; PCP Internal Medicine
DX: R07.89 Other chest pain (principal); R00.1 Bradycardia, unspecified; I25.10 Atherosclerotic heart disease of native coronary artery without angina pectoris; Z20.822 Contact with and (suspected) exposure to COVID-19
CPT/HCPCS: 36415; 80053; 87635; 93005; 99284; 71045; 83735; 84443; 84484; 85025; 85730; 93010; 99238

== ENCOUNTER → 2021-12-19 13:53 | Outpatient (CLI) | payer BC, SELFPAY ==
--- NOTE | 2021-12-19 15:00 | ETT_ITS ---
APPROVED REPORT Exam: Exercise Treadmill Patient Location: Out-Patient Room/Bed: Stress Nurse: Whitney Rubi RN Ordering Provider:TALIB MARIA, Contact Number: [phone] BMI: 24.58 Baseline Rhythm: Sinus Rhythm Indications: Chest pain Medical History Medical History: Hyperlipidemia, CKD, stage 4 prostate cancer, bradycardia, orthostasis, hypotension, mcconnell's esophagus Cardiac Medications: Atorvastatin, tadalifil Allergies: NKA Cardiac Risk Factors: Hyperlipidemia, family hx Previous Cardiac Procedures: None Pretest Chest Pain Characteristics: Intermittent L chest tightness 2/10 Exercise History: Sedentary (usually active until last 5 months) Physical Disabilities: None Lung Sounds: Clear to auscultation Heart Sounds: Regular Stress Test Details Test: Exercise stress testing was performed using a Serafin protocol. Rest Stress HR Resting HR Supine: 68 bpm Max Heart Rate (APMHR): 149 bpm Resting HR Standin bpm Target HR (85% APMHR): 126 bpm Max HR Achieved: 138 bpm % of APMHR: 92 Recovery HR: 70 bpm HR response to stress: Normal HR response to stress BP Resting BP Supine: 130/78 mmHg Resting BP Standin/71 mmHg Max BP: 168/82 mmHg Recovery BP: 142/76 mmHg BP response to stress: Blunted blood pressure response to stress. ECG Resting ECG: Sinus Rhythm Ectopy: None Stress ECG: Sinus Tachycardia ST Change: Horizontal ST depression, Downsloping ST depression Lead(s): II, III, aVF, V4-V6 Stage: [address] Deviation: 3 mm Arrhythmia: Rare PVC Recovery ECG: Sinus Rhythm Recovery ST Change: No significant ST segment changes noted Recovery Arrhythmia: Rare PVC Comment: ST depressions resolved by minute 1-2 in recovery Clinical Reason for Termination: Fatigue Stress Symptoms: General Fatigue, increased L chest tightness Exercise duration: 7 min06 sec Highest Stage Reached: Stage 3: 3.4 mph at 14% grade. Exercise capacity: 8.73 METs Angina Score: Non-Limiting Martinez Treadmill Score: -12.0 Rate Pressure Product: 65450 Stress ECG Conclusion 1. The resting electrocardiogram showed voltage for left ventricular hypertrophy. 2. Patient exercised on the Serafin protocol and completed a work load of 8.73 METS, stopping due to fa tigue and worsening chest tightness 3. The patient achieved 92% of predicted heart rate for age 4. Chest pain was present prior to initiation of exercise. This became worse by end exercise, improv ed in recovery 5. Electrocardiographic portion of the test was strongly positive for myocardial ischemia with 3 to [address] depression at peak exercise, improving in recovery 6. Rare premature ventricular contractions were noted Martinez Treadmill Score is -12.0 which is High risk. Stress Test Summary STAGE Time (mins) Speed (mph) Grade (%) HR BP SYMPTOMS METS Supine 68 130/78 Standing 71 132/74 Baseline L chest tightness 2/10, SpO2 96% 1 3 1.7 10 103 138/86 SpO2 94% 4.6 2 6 2.5 12 119 142/82 SpO2 94% 7 3 9 3.4 14 135 L chest tightness 4/10, SpO2 94% 10.2 1 min recovery 109 144/68 Symptoms improving, SpO2 96% 3 min recovery 80 168/82 Return to baseline L chest tightness 2/10, SpO2 96% 6 min recovery 70 142/76 SpO2 96%
== END ==
PROVIDERS: PCP Internal Medicine; Visit Provider Student in an Organized Health Care Education/Training Program
DX: R07.89 Other chest pain (principal)
CPT/HCPCS: 93017

== ENCOUNTER 2021-12-26 10:45 | Outpatient (CLI) | payer BC, SELFPAY ==
--- NOTE | 2021-12-26 10:45 | RT.EKG_ITS ---
APPROVED REPORT Exam: Resting ECG Reason for Exam: chest pain Patient Location: O HR:53 bpm ECG Measurements Heart Rate 53 AXIS WY 180 P 29 QRSd 90 QRS 4 QT 451 T 7 QTc 424 Conclusion Sinus rhythm...normal P axis, V-rate 50- 99 Probable left atrial enlargement...P >50mS, <-0.10mV V1
== END 2021-12-26 10:46 | disposition home or self-care (01) ==
LOC: DI.CARD 10:46
PROVIDERS: PCP Internal Medicine; Visit Provider Internal Medicine Cardiovascular Disease
DX: R00.1 Bradycardia, unspecified (principal); R07.9 Chest pain, unspecified; R94.31 Abnormal electrocardiogram [ECG] [EKG]
CPT/HCPCS: 93010

== ENCOUNTER 2022-01-02 03:33 | Outpatient (CLI) | payer BC, SELFPAY ==
[2022-01-02 10:05] LABS: Prothrombin Time 10.1 sec (9.3-11.0)
== END 2022-01-02 03:34 | disposition home or self-care (01) ==
LOC: LBO 03:33
PROVIDERS: PCP Internal Medicine; Visit Provider Internal Medicine Cardiovascular Disease
DX: R94.31 Abnormal electrocardiogram [ECG] [EKG] (principal); R07.9 Chest pain, unspecified; R00.1 Bradycardia, unspecified; Z79.82 Long term (current) use of aspirin
CPT/HCPCS: 36415; 85610

== ENCOUNTER 2022-02-21 01:45 | Outpatient (CLI) | payer BC, SELFPAY ==
[2022-02-21 10:37] LABS: Abs Immature Grans 0.02 10^3/uL (0.0-0.06); Absolute Basophil Count 0.01 10^3/uL (0.0-0.2); Absolute Eosinophil Count 0.07 10^3/uL (0.0-0.7); Absolute Lymphocyte Count 0.42 10^3/uL (1.2-3.4); Absolute Monocyte Count 0.45 10^3/uL (0.1-0.8); Absolute Neutrophil Count 4.83 10^3/uL (1.2-6.7); Basophils % 0.2; Eosinophils % 1.2; HCT 39.5 % (40.0-50.0); HGB 13.7 g/dL (13.5-17.5); Immature Grans % 0.3; Lymphocytes % 7.2; MCH 31.5 pg (27.0-33.0); MCHC 34.7 % (32.0-36.0); MCV 91 fL (80-95); MPV 8.9 fL (8.0-11.0); Monocytes % 7.8; Neutrophils % 83.3; Platelet Count 190 10^3/uL (130-400); RBC 4.35 10^6/uL (4.36-5.78); RDW 12.4 % (11.8-14.1); RDW-SD 41.5 fL
[2022-02-21 11:00] LABS: ALT 32 U/L (16-63); AST 26 U/L (15-37); Albumin 3.9 g/dL (3.4-5.0); Alkaline Phosphatase 99 U/L (46-116); Anion Gap 7.3 mmol/L (3-11); BUN 17 mg/dL (7-18); Bilirubin, Total 0.8 mg/dL (0.2-1.0); CO2 28.7 mmol/L (21.0-32.0); Calcium 8.7 mg/dL (8.5-10.1); Chloride 104 mmol/L (98-107); Estimated GFR 80.47 (mL/min/1.73m2); Glucose 105 mg/dL (74-106); Potassium 3.4 mmol/L (3.5-5.1); Sodium 140 mmol/L (136-145); Total Protein 7.4 g/dL (6.4-8.2)
[2022-02-22 14:28] LABS: PSA, Ultrasensitive 0.03 ng/mL (<= 6.5)
[2022-02-24 09:04] LABS: Testosterone, Total <7.0 ng/dL (240-950)
== END 2022-02-21 01:46 | disposition home or self-care (01) ==
LOC: LBO 01:45
PROVIDERS: PCP Internal Medicine; Visit Provider Nurse Practitioner Family
DX: C61 Malignant neoplasm of prostate (principal)
CPT/HCPCS: 36415; 80053; 84153; 84403; 85025

== ENCOUNTER 2022-05-28 | Emergency (ER) | payer BC, SELFPAY ==
[2022-05-28 00:09] VITALS: BP 143/55; PULSE 52; RESP 16; TEMP 36.6; O2SAT 98
[2022-05-28 00:18] VITALS: RESP 16
--- NOTE | 2022-05-28 00:34 | W.ED.GENAD ---
Discharge Plan Disposition Patient Disposition: Home Condition: Improving Discharge Details Clinical Impression: Ecchymosis Primary Care Provider: Alondra Flores ED Provider: Rufino Paris Home Meds and New Rx's Prescriptions: Continued aspirin [Adult Aspirin Regimen] 81 mg tablet,delayed release (DR/EC) 81 mg PO DAILY clopidogrel 75 mg tablet 75 mg PO DAILY metoprolol succinate 25 mg tablet extended release 24 hr 25 mg PO DAILY atorvastatin 80 mg tablet 80 mg PO DAILY prednisone 5 mg tablet 5 tab PO DAILY tamsulosin 0.4 mg capsule 1 cap PO DAILY Label Comments: TAKE 1 CAPSULE BY MOUTH AT BEDTIME tadalafil 5 mg tablet cholecalciferol (vitamin D3) 25 mcg (1,000 unit) tablet 1 tab PO DAILY Label Comments: TAKE 1 TABLET BY MOUTH EVERY DAY acetaminophen [Tylenol] 325 mg Tablet 650 mg PO Q4H PRN PRNQty: 30 0RF abiraterone 250 mg tablet 1,000 mg PO DAILY Lupron Depot (3 month) 11.25 mg syringe kit IM Label Comments: every 3 mos, per Onc Discharge Instructions Additional Instructions: Our care managers will arrange a follow-up for you at the [facility] for recheck of the left forearm lesion. Please return tomorrow for outpatient ultrasound. Call the ultrasound office in the morning for an appointment time. Home to rest this evening. Medical Decision Making 71-year-old male presents from home with his . He is concerned for a DVT of the right lower extremity. Exam reveals right anteromedial bruising and the patient is able to relate a mild trauma to the area. Unlikely DVT but we will have the patient return tomorrow for formal ultrasound. Secondarily, the patient complains of a new lesion on his left forearm. There is an area of ecchymosis with central clearing. Its not raised. He states has been there 2 days. Cannot rule out a skin lesion and we will have him follow-up with the [facility] for recheck. We will ask care management to arrange a follow-up. Screening laboratories were obtained and unremarkable. Patient will return tomorrow for reevaluation. Lab Data Lab results reviewed: Yes I reviewed the patient's lab results. Labs: Laboratory Results - last 24 hr 05/28/22 05/28/22 05/28/22 00:30 00:30 00:30 WBC 5.15 RBC 4.14 L Hgb 12.8 L Hct 38.2 L MCV 92 MCH 30.9 MCHC 33.5 RDW 12.6 Plt Count 199 MPV 9.4 PT 9.5 INR 0.9 Sodium 142 Potassium 3.5 Chloride 105 Carbon Dioxide 28.6 Anion Gap 8.4 BUN 26 H Creatinine 1.3 Est GFR (CKD-EPI 2020) 58.73 Glucose 108 H Calcium 8.9 HPI General Mode of arrival: ambulatory. Date/Time Provider Initiated Documentation: 05/28/22 00:01. Limitations to Documentation: no limitations. Information obtained by: patient. History of Present Illness 71 year old M presents to the emergency department with the chief complaint of Right leg bruise and left arm lesion, described as mild, and is localized to the left, right, upper extremity and lower extremity. Patient reports no radiation. Patient started experiencing this day(s) and it has been constant. No relieving factors improve symptom(s), No exacerbating factors reported . Patient notes denies chest pain, cough and shortness of breath. Patient did receive the following treatments prior to arrival, none Related Data Home Medications Medication Instructions Recorded Confirmed acetaminophen 325 mg tablet 650 mg PO Q4H PRN PRN #30 tabs 07/17/19 03/29/22 (Tylenol) cholecalciferol (vitamin D3) 25 1 tab PO DAILY 12/15/21 03/29/22 mcg (1,000 unit) tablet prednisone 5 mg tablet 5 tab PO DAILY 12/15/21 03/29/22 tadalafil 5 mg tablet tab 12/15/21 03/29/22 tamsulosin 0.4 mg capsule 1 cap PO DAILY 12/15/21 03/29/22 abiraterone 250 mg tablet 1,000 mg PO DAILY 12/18/21 03/29/22 leuprolide (3 month) 11.25 mg (3 syrg IM 12/18/21 03/29/22 month) intramuscular syringe kit (Lupron Depot) aspirin 81 mg tablet,delayed 81 mg PO DAILY 12/26/21 03/29/22 release (Adult Aspirin Regimen) atorvastatin 80 mg tablet 80 mg PO DAILY 03/29/22 03/29/22 clopidogrel 75 mg tablet 75 mg PO DAILY 03/29/22 03/29/22 metoprolol succinate 25 mg 25 mg PO DAILY 03/29/22 03/29/22 tablet,extended release 24 hr Previous Rx's Medication Instructions Recorded acetaminophen 325 mg tablet 650 mg PO Q4H PRN PRN #30 tabs 07/17/19 (Tylenol) Allergies Allergy/AdvReac Type Severity Reaction Status Date / Time No Known Allergies Allergy Verified 12/26/21 14:40 General Stated Complaint: Vascular MEERA: 3 Review of Systems Narrative: 8 systems reviewed and otherwise negative. PFSH All Active Problems Ecchymosis (Acute) Coronary artery disease (Chronic) Family history of ischemic heart disease (Acute) Hyperlipidemia (Acute) Abnormal electrocardiography during exercise stress test (Acute) Esophagitis (Acute) Gastritis (Acute) Symptomatic anemia (Acute) Discharge planning issues (Acute) DVT prophylaxis (Acute) Anemia due to acute blood loss (Acute) Estrada esophagus (Acute) Calculus of distal right ureter (Acute) UGIB (upper gastrointestinal bleed) (Acute) Tremor (Chronic) Hx of abdominal surgery (Chronic) for intussusception S/P orchiectomy (Chronic) Medical History CKD (chronic kidney disease) Erectile dysfunction Fatigue Lower urinary tract symptoms (LUTS) Prostate cancer Family History Father Hyperlipidemia Brother Hyperlipidemia Heart disease Social History Smoking/Tobacco Use Status: Never Smoking risk assessment performed?: Yes Alcohol Intake: current Alcohol Intake frequency: a few times a week Substance use type: does not use Household members: spouse What is your relationship status?: Panel score (0-1 are the most socially isolated patients): 1 Do you feel safe at home: Yes Do you feel safe in your relationship?: Yes Exam Narrative Exam Narrative: GEN: awake, alert, oriented 3. Pleasant, well groomed, interactive. HEAD: Normocephalic, atraumatic ENT: Mucous membranes moist, oropharynx unremarkable, External ear exam unremarkable EYES: PERRL, EOMI NECK: Full ROM, no FRANCA, no menigismus CHEST/RESP: Nontender, clear to auscultation bilateral, no wheeze/rhonchi/rales CARDIOVASCULAR: RRR, no murmur, rub davina. 2+ Rad pulse bilateral ABDOMEN: Soft, nontender, no mass. +Bowel sounds EXT: Full ROM, right lower anteromedial leg with ecchymosis present. No cords or asymmetry appreciated. The left forearm has a approximately 2 cm diameter area of discoloration that is not raised. Neuro: Grossly normal neurologic exam, conversant, interactive. Psych: Speech fluent, thoughts congruent, affect normal Course Vital Signs Vital signs: Vital Signs Temperature 36.6 C 05/28/22 00:09 Pulse 52 L 05/28/22 00:09 Respiratory Rate 16 05/28/22 00:09 Blood Pressure 143/55 H 05/28/22 00:09 Pulse Oximetry 98 05/28/22 00:09 Temperature 36.6 C 05/28/22 00:09 Temperature Source Oral 05/28/22 00:09 Pulse 52 L 05/28/22 00:09 Respiratory Rate 16 05/28/22 00:18 Respiratory Effort 05/28/22 00:18 Respiratory Depth Normal 05/28/22 00:18 Respiratory Pattern Normal 05/28/22 00:18 Blood Pressure 143/55 H 05/28/22 00:09 Blood Pressure Position Sitting 05/28/22 00:09 Pulse Oximetry 98 05/28/22 00:09 Oxygen Delivery Method Room Air 05/28/22 00:09 Oxygen Flow Rate 0 05/28/22 00:09 Pain Level 0 05/28/22 00:09
[2022-05-28 00:41] LABS: HCT 38.2 % (40.0-50.0); HGB 12.8 g/dL (13.5-17.5); MCH 30.9 pg (27.0-33.0); MCHC 33.5 % (32.0-36.0); MCV 92 fL (80-95); MPV 9.4 fL (8.0-11.0); Platelet Count 199 10^3/uL (130-400); RBC 4.14 10^6/uL (4.36-5.78); RDW 12.6 % (11.8-14.1); RDW-SD 42.3 fL; WBC 5.15 10^3/uL (4.4-10.8)
[2022-05-28 00:50] LABS: Anion Gap 8.4 mmol/L (3-11); BUN 26 mg/dL (7-18); CO2 28.6 mmol/L (21.0-32.0); CREATININE 1.3 mg/dL (0.70-1.30); Calcium 8.9 mg/dL (8.5-10.1); Chloride 105 mmol/L (98-107); Estimated GFR 58.73 (mL/min/1.73m2); Glucose 108 mg/dL (74-106); Potassium 3.5 mmol/L (3.5-5.1); Sodium 142 mmol/L (136-145)
[2022-05-28 00:52] LABS: INR 0.9 (0.9-1.1); Prothrombin Time 9.5 sec (9.3-11.0)
--- NOTE | 2022-05-28 00:55 | NUR.NOTE ---
Requisition to DI for R UE ultrasound and will f/u in ED after test. Referral faxed to [facility] to f/u 1-2 weeks for forearm lesion.Nursing Note:
== END 2022-05-28 01:10 | disposition home or self-care (01) ==
PROVIDERS: Emergency Provider Emergency Medicine; PCP Internal Medicine
DX: S80.11XA Contusion of right lower leg, initial encounter (principal); L98.9 Disorder of the skin and subcutaneous tissue, unspecified; N18.9 Chronic kidney disease, unspecified; Z79.82 Long term (current) use of aspirin; X58.XXXA Exposure to other specified factors, initial encounter
CPT/HCPCS: 36415; 80048; 85027; 99283; 85610; 99282

== ENCOUNTER 2023-06-21 07:40 | Emergency (ER) | payer BC, SELFPAY ==
[2023-06-21 07:43] VITALS: BP 141/63; PULSE 63; RESP 18; TEMP 35.9; O2SAT 99
--- NOTE | 2023-06-21 08:18 | ED.GENADUL_ITS ---
HPI General Stated Complaint: Orthopedic Mode of arrival: ambulatory. MEERA: 4 Date/Time Provider Initiated Documentation: 06/21/23 07:58. Limitations to Documentation: no limitations. Information obtained by: patient. History of Present Illness Right arm pain moderate and severe 7 aching and sharp upper extremity reports no radiation year(s) (at least 3, worst yesterday) constant Immobilization improves symptom(s), Movement worsens symptoms no other symptoms. none Related Data Home Medications Medication Instructions Recorded Confirmed acetaminophen 325 mg tablet 650 mg (2 x 325 mg) PO Q4H PRN PRN 07/17/19 06/21/23 (Tylenol) #30 tabs cholecalciferol (vitamin D3) 25 1 tab PO DAILY 12/15/21 06/21/23 mcg (1,000 unit) tablet tadalafil 5 mg tablet tab 12/15/21 12/17/22 tamsulosin 0.4 mg capsule 1 cap PO DAILY 12/15/21 06/21/23 abiraterone 250 mg tablet 1,000 mg PO DAILY 12/18/21 06/21/23 aspirin 81 mg tablet,delayed 81 mg PO DAILY 12/26/21 06/21/23 release (Adult Aspirin Regimen) atorvastatin 80 mg tablet 80 mg PO DAILY 03/29/22 06/21/23 famotidine 10 mg tablet (Acid 10 mg PO DAILY 12/17/22 06/21/23 Certified Personal Finance Counselor (famotidine)) Previous Rx's Medication Instructions Recorded acetaminophen 325 mg tablet 650 mg (2 x 325 mg) PO Q4H PRN PRN 07/17/19 (Tylenol) #30 tabs Allergies Allergy/AdvReac Type Severity Reaction Status Date / Time No Known Allergies Allergy Verified 06/21/23 07:46 Review of Systems Constitutional Constitutional: Denies weakness Musculoskeletal Musculoskeletal: Denies numbness and Denies tingling Integumentary/Breasts Skin/Breast: Denies rash Neurologic Neurologic: Denies numbness, Denies tingling and Denies weakness PFSH All Active Problems Medial epicondylitis of right elbow (Acute) Arthritis of right glenohumeral joint (Acute) Coronary artery disease (Chronic) Family history of ischemic heart disease (Acute) Hyperlipidemia (Acute) Abnormal electrocardiography during exercise stress test (Acute) Esophagitis (Acute) Gastritis (Acute) Symptomatic anemia (Acute) Discharge planning issues (Acute) DVT prophylaxis (Acute) Anemia due to acute blood loss (Acute) Estrada esophagus (Acute) Calculus of distal right ureter (Acute) UGIB (upper gastrointestinal bleed) (Acute) Tremor (Chronic) Hx of abdominal surgery (Chronic) for intussusception S/P orchiectomy (Chronic) Medical History CKD (chronic kidney disease) Erectile dysfunction Fatigue Lower urinary tract symptoms (LUTS) Prostate cancer Family History Father Hyperlipidemia Brother Hyperlipidemia Heart disease Social History Smoking/Tobacco Use Status: Never Smoking risk assessment performed?: Yes Alcohol Intake: current Alcohol Intake frequency: a few times a week Drug use: Never Substance use type: does not use Household members: spouse What is your relationship status?: Panel score (0-1 are the most socially isolated patients): 1 Do you feel safe at home: Yes Do you feel safe in your relationship?: Yes PAWSS Have you Been Recently Intoxicated or Drunk Within the Last 30 days?: No Have you Ever Experienced Previous Episodes of Alcohol Withdrawal?: No Have you ever Experienced Withdrawal Seizures?: No Have you ever Experienced Delirium Tremens(DT)s?: No Have you ever undergone Alcohol Rehabilitation Treatment (i.e, inpt ot outpatient treatment programs)?: No Have you ever Experienced Blackouts?: No Have you ever Combined Alcohol with other Downers within the last 90 days?: No Have you ever Combined Alcohol with any other Substance of Abuse during the last 90 days?: No Positive Blood Alcohol level on Presentation? [PCS.BAL]: No Evidence of Increased Autonomic Activity (i.e. HR>120, tremor, sweating, agitation, nausea)?: No Result: 0 Exam Const General: cooperative, healthy appearing and comfortable Neck Neck: normal visual inspection and full ROM Resp Effort & Inspection: able to speak in complete sentences Skin General skin exam: no rashes or lesions noted Neuro General: patient alert and patient awake Extrem Other: Right shoulder exam: Visual inspection without erythema, ecchymosis, swelling, obvious deformity. No biceps deformity. Active range of motion yields approximately 115 degrees of forward flexion, about 55 degrees of external rotation, patient can reach his lower lumbar spine with internal rotation. There is no significant discomfort to palpation about the shoulder, biceps, or AC joint. Overall rotator cuff strength is well-preserved with testing. Negative external rotation. Negative empty can for weakness, does elicit mild discomfort. Right elbow exam: Visual inspection without erythema, ecchymosis, obvious deformity. There is mild swelling and point tenderness over the medial epicondyle. No evidence of septic joint. Patient does have slightly limited extension and flexion secondary to discomfort. Able to demonstrate pronation and supination without difficulty. No discomfort about the medial epicondyles or olecranon. Course Vital Signs Vital signs: Vital Signs Temperature 35.9 C L 06/21/23 07:43 Pulse 63 06/21/23 07:43 Respiratory Rate 18 06/21/23 07:43 Blood Pressure 141/63 H 06/21/23 07:43 Pulse Oximetry 99 06/21/23 07:43 Temperature 35.9 C L 06/21/23 07:43 Temperature Source Temporal Artery Scan 06/21/23 07:43 Pulse 63 06/21/23 07:43 Respiratory Rate 18 06/21/23 07:43 Respiratory Effort Normal, Non-Labored 06/21/23 07:49 Blood Pressure 141/63 H 06/21/23 07:43 Blood Pressure Position Sitting 06/21/23 07:43 Pulse Oximetry 99 06/21/23 07:43 Oxygen Delivery Method Room Air 06/21/23 07:43 Oxygen Flow Rate 0 06/21/23 07:43 Medical Decision Making 72-year-old gentleman, [id number], reports several years of chronic right shoulder pain slowly progressing. Reports that he is very active in general. Denies any significant dysfunction of his shoulder regarding weakness or range of motion. Pain seems to be worse with movement overhead or at night. Patient was chipping ice over the past couple of days and feels as though he exacerbated his chronic right shoulder pain and now has no new medial elbow discomfort. His looked up his symptoms online, concerned that he may have bursitis, and questions if an injection is appropriate. Reviewed right shoulder x-ray from 01/06/2021, significant to moderate both glenohumeral and AC joint degenerative changes. Discussed thoroughly. Unfortunately, explained to patient that we do not provide steroid injections here in the ER. Based upon his shoulder examination, rotator cuff looks grossly intact. Did discuss that I do believe steroid injections may be beneficial, briefly discussed reverse TSA, patient reports he has no interest in surgery at this time. Will refer to orthopedics Discussed his right elbow, most consistent with an acute medial epicondylitis. Patient also questions if an injection here would be appropriate. Discussed in length. We discussed activity modification, forearm band for compression, NSAIDs, cool and/or warm compresses, etc. Discussed conservative measurements in length. Patient questions if this could possibly be drained or would benefit from a steroid injection. Discussed that there is no place for drainage or abscess ration. Discussed that if he was to fail conservative measures, that he could certainly talk to orthopedics regarding next step in treatment modalities. Referral to orthopedics sent. Patient is primarily concerned of pain, did offer additional prescription analgesia but he declines. Is comfortable taking iwty-sge-yevlrio medications. Standard discharge and return precautions were provided. Patient understands, is agreeable to this plan, and has no additional questions or concerns upon discharge. This documentation was generated using [employer] system, please disregard any oddities of phrase or misspellings. Medical Records Medical records reviewed: Yes I reviewed the patient's medical records. Quality:SDOH Health Related Social Needs: No Data to Display Discharge Plan Disposition Patient Disposition: Home Condition: Stable Discharge Details Clinical Impression: Arthritis of right glenohumeral joint, Medial epicondylitis of right elbow Primary Care Provider: Oniel Espinal ED Provider: Jatinder Rodriguez Home Meds and New Rx's Prescriptions: Continued aspirin [Adult Aspirin Regimen] 81 mg tablet,delayed release (DR/EC) 81 mg PO DAILY atorvastatin 80 mg tablet 80 mg PO DAILY famotidine [Acid Certified Personal Finance Counselor (famotidine)] 10 mg tablet 10 mg PO DAILY tamsulosin 0.4 mg capsule 1 cap PO DAILY Patient Comments: TAKE 1 CAPSULE BY MOUTH AT BEDTIME tadalafil 5 mg tablet cholecalciferol (vitamin D3) 25 mcg (1,000 unit) tablet 1 tab PO DAILY Patient Comments: TAKE 1 TABLET BY MOUTH EVERY DAY acetaminophen [Tylenol] 325 mg Tablet 650 mg PO Q4H PRN PRNQty: 30 0RF abiraterone 250 mg tablet 1,000 mg PO DAILY Discharge Instructions Instructions: Tennis Elbow (ED), Osteoarthritis (ED) Additional Instructions: Based upon your previous x-ray it appears as though you have moderate osteoarthritis of your glenohumeral joint of your right shoulder. It also appears that you have an acute medial epicondylitis. Rest. Cool and/or warm compresses every 2 hours for 20 minutes. Activity modification for pain control. May also wear an [id number] elbow band for epicondylitis. [id number] NSAIDs as directed. Please watch for new or worsening symptoms and return to the ER for any concerns. I have given you a referral to orthopedics to Dr. Rene. If symptoms persist by the time you see Dr. Rene, subacromial injection may be an option as you have stated that you are not interested in any potential surgery. Also additional therapy for your medial ep icondylitis may be required if your symptoms are not responding to conservative measures. Referrals: Shamar Rene MD [ [facility] STAFF PHYSICIAN] -
== END 2023-06-21 08:43 | disposition home or self-care (01) ==
PROVIDERS: Emergency Provider Physician Assistant; PCP Family Medicine
DX: M19.011 Primary osteoarthritis, right shoulder (principal); M77.01 Medial epicondylitis, right elbow; I25.10 Atherosclerotic heart disease of native coronary artery without angina pectoris; E78.5 Hyperlipidemia, unspecified; Z79.82 Long term (current) use of aspirin
CPT/HCPCS: 99283

== ENCOUNTER 2024-01-23 09:39 | Outpatient (CLI) | payer BC, SELFPAY ==
--- NOTE | 2024-01-23 09:30 | RT.EKG_ITS ---
APPROVED REPORT Exam: Resting ECG Reason for Exam: CAD Patient Location: O HR:56 bpm ECG Measurements Heart Rate 56 AXIS DE 186 P 66 QRSd 91 QRS 30 QT 423 T 55 QTc 409 Conclusion Sinus rhythm...normal P axis, V-rate 50- 99 Normal Electrocardiogram
== END 2024-01-23 09:40 | disposition home or self-care (01) ==
LOC: DI.CARD 09:40
PROVIDERS: PCP Family Medicine; Visit Provider Internal Medicine Cardiovascular Disease
DX: I25.10 Atherosclerotic heart disease of native coronary artery without angina pectoris (principal)
CPT/HCPCS: 93010

== ENCOUNTER 2024-06-01 15:23 | Outpatient (CLI) | payer BC, SELFPAY ==
--- NOTE | 2024-06-01 | DI.RAD_ITS ---
Exam(s) XR CHEST 2V PA LATERAL EXAM: XR CHEST 2V PA LATERAL CLINICAL HISTORY: R05.9 cough TECHNIQUE: 2D digital imaging was performed. Two views. COMPARISON: CR XR PORTABLE CHEST AP from 07/15/2019 FINDINGS: HEART: Normal size. Aorta: Not dilated. PULMONARY VASCULATURE: Normal. MEDIASTINUM: Unremarkable. LUNGS: Patchy infiltrate noted at the left lower lobe. The right lung is clear. PLEURAL SPACE: No pleural effusion or pneumothorax. BONE:Unremarkable for age. SOFT TISSUES: Unremarkable. IMPRESSION: Left lower lobe pneumonia. DATA REPOSITORY: RADIATION DOSE DELIVERED:
== END 2024-06-01 15:43 ==
LOC: DI 15:24
PROVIDERS: PCP Family Medicine; Visit Provider Nurse Practitioner
DX: R05.9 Cough, unspecified (principal)
CPT/HCPCS: 71046

== ENCOUNTER 2024-07-23 02:33 | Outpatient (CLI) | payer BC, SELFPAY ==
--- NOTE | 2024-07-23 | DI.DEXA_ITS ---
Exam(s) XR DEXA BONE DENSITY W/WO EDUARDO EXAM: XR DEXA BONE DENSITY W/WO EDUADRO CLINICAL HISTORY: RETIREMENT CURRENT USE DRUG THERAPY, Z79.899 TECHNIQUE: Routine DEXA evaluation of the lumbar spine, hip, or forearm. COMPARISON: No exams were available for comparison FINDINGS: Performed on a Hologic unit. Lateral image: No compression fracture evident. Lumbar Spine total T-score: 1.6 Hip total T-score:-0.7 Independent reading at the level of the femoral neck yields T-score of -1.2 Forearm total T-score: -2.0 IMPRESSION: Bone mineral density measures in the osteopenia range. Fracture risk is moderate. Note: Any spine fracture indicates 5x risk for subsequent spine fracture and 2x risk for subsequent h ip fracture. World Health Organization criteria for BMD interpretation classify patients: Normal...... T- Score at or above -1.0 Osteopenic... T- Score between -1.0 and -2.5 Osteoporosis... T-Score at or below -2.5
== END 2024-07-23 02:53 ==
LOC: DI 02:33
PROVIDERS: PCP Family Medicine; Visit Provider Family Medicine
DX: Z13.820 Encounter for screening for osteoporosis (principal); Z79.899 Other long term (current) drug therapy; M85.89 Other specified disorders of bone density and structure, multiple sites
CPT/HCPCS: 77080

== ENCOUNTER 2025-04-09 09:21 | Outpatient (CLI) | payer BC, SELFPAY ==
--- NOTE | 2025-04-09 09:15 | RT.EKG_ITS ---
APPROVED REPORT Exam: Resting ECG Reason for Exam: f/u needed Patient Location: O HR:61 bpm ECG Measurements Heart Rate 61 AXIS LA 209 P 59 QRSd 95 QRS 13 QT 422 T 42 QTc 425 Conclusion Sinus rhythm...normal P axis, V-rate 50- 99 Probable left atrial enlargement...P >50mS, <-0.10mV V1 Otherwise normal ECG
== END 2025-04-09 09:22 | disposition home or self-care (01) ==
LOC: DI.CARD 09:25
PROVIDERS: PCP Family Medicine; Visit Provider Internal Medicine Cardiovascular Disease
DX: I25.10 Atherosclerotic heart disease of native coronary artery without angina pectoris (principal); Z82.49 Family history of ischemic heart disease and other diseases of the circulatory system; I51.7 Cardiomegaly
CPT/HCPCS: 93010